=== PATIENT | female | born 1935 | race Caucasian/White ===

== ENCOUNTER 2018-09-19 06:58 | Emergency (ER) | payer OTHER ==
--- OUTSIDE RECORDS SUMMARY | 2018-09-19 07:12 | XMS REPORT ---
:1935 Author Organization eClinicalWorks Care Team Providers Name Role Phone Dusty Alvarado Provider Role Unavailable Allergies, Adverse Reactions, Alerts Substance Reaction Event Type N.K.D.A. 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 Active Problem Primary osteoarthritis of right M17.11 Active knee Assessment Primary osteoarthritis of left knee M17.12 Active Problem Pain in joint of left knee M25.562 Active Assessment Pain in joint of right knee M25.561 Active Assessment Primary osteoarthritis of right M17.11 Active knee Problem Primary osteoarthritis of left knee M17.12 Active Problem Screening for malignant neoplasm of Z12.11 Active colon Problem Prediabetes R73.03 Active Problem Pain in joint of right knee M25.561 Active Problem Edema, unspecified R60.9 Active Problem Venous insufficiency (chronic) I87.2 Active (peripheral) Problem Diastolic congestive heart failure I50.30 Active Assessment Pain in joint of left knee M25.562 Active Problem Unsteady gait R26.81 Active Problem Carpal tunnel syndrome G56.00 Active Problem Pure hypercholesterolemia E78.00 Active Problem Prediabetes R73.09 Active Problem Edema, lower extremity R60.0 Active Problem HTN (hypertension) I10 Active Medications Medication Code Code Instructions Start End Status Dosage System Date Date Metoprolol ND 82272845110 50 MG Orally Active 1 tablet Tartrate Twice a day with food Tramadol HCl ND 89978092576 50 MG Orally Active 1 tablet every 6 hrs as needed Losartan ND 65681478760 100 MG Orally January 30, Active 1 tablet Potassium Once a day 2017 Ferrous ND 59735498717 325 (65 Fe) MG Active 1 tablet Sulfate Orally three times a day Lasix ND 26900289566 20 MG Orally Active 1 tablet Once a day Flonase ND 79683009888 50 MCG/ACT Active 1 spray in Nasally Once a each day nostril Macrobid [facility] 21322246793 100 MG Orally Active 1 capsule every 12 hrs with food Amlodipine [facility] 52847779255 10 MG Orally Active 1 tablet Besylate Once a day Protonix [facility] 67840601728 40 MG Orally Active 1 tablet Once a day Results No Known Results Summary Purpose eClinicalWorks Submission
--- OUTSIDE RECORDS SUMMARY | 2018-09-19 07:12 | XMS REPORT ---
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 Active Problem Primary osteoarthritis of right M17.11 Active knee Problem Pain in joint of left knee M25.562 Active Problem Primary osteoarthritis of left knee M17.12 Active Problem Screening for malignant neoplasm of Z12.11 Active colon Problem Prediabetes R73.03 Active Problem Pain in joint of right knee M25.561 Active Problem Edema, unspecified R60.9 Active Problem Venous insufficiency (chronic) I87.2 Active (peripheral) Problem Diastolic congestive heart failure I50.30 Active Problem Unsteady gait R26.81 Active Problem Carpal tunnel syndrome G56.00 Active Problem Pure hypercholesterolemia E78.00 Active Problem Prediabetes R73.09 Active Problem Edema, lower extremity R60.0 Active Problem HTN (hypertension) I10 Active Medications Medication Code Code Instructions Start End Status Dosage System Date Date Amlodipine [facility] 66051965490 10 Orally Once a Active 1 tablet Besylate day Integra Plus [facility] 50402333004 - Orally Once a Active 1 capsule day Lasix [facility] 24597270738 20 Orally Once a Active 1 tablet day Macrobid [facility] 60948243876 100 MG Orally Active 1 capsule every 12 hrs with food Potassium [facility] 51495550998 20 MEQ Orally Active 1 tablet Chloride ER Once a day with food Protonix [facility] 59685527156 40 MG Orally Active 1 tablet Once a day Protonix ND 55695919720 40 Orally Once a Active 1 tablet day Losartan ND 56888950117 100 Orally Once Active 1 tablet Potassium a day Tramadol HCl ND 59953778435 50 MG Orally Active 1 tablet every 6 hrs as needed Flonase [facility] 69408695272 50 MCG/ACT Active 1 spray in Nasally Once a each day nostril Lasix [facility] 15181320844 20 MG Orally Active 1 tablet Once a day Amlodipine [facility] 92126514820 10 MG Orally Active 1 tablet Besylate Once a day Metoprolol [facility] 93268096707 50 MG Orally Active 1 tablet Tartrate Twice a day with food Lisinopril [facility] 38691528866 20 MG Orally Active 1 tablet Once a day Results No Known Results Summary Purpose eClinicalWorks Submission
--- OUTSIDE RECORDS SUMMARY | 2018-09-19 07:12 | XMS REPORT ---
:1935 Author Organization eClinicalWorks Care Team Providers Name Role Phone Koch, Na Provider Role Unavailable Allergies, Adverse Reactions, Alerts Substance Reaction Event Type N.K.D.A. 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 Active Problem Primary osteoarthritis of right M17.11 Active knee Problem Pain in joint of left knee M25.562 Active Assessment Pure hypercholesterolemia E78.00 Active Assessment 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 dietary causes Problem Primary osteoarthritis of left knee M17.12 Active Assessment Diastolic congestive heart failure I50.30 Active Problem Screening for malignant neoplasm of Z12.11 Active colon Problem Prediabetes R73.03 Active Problem Pain in joint of right knee M25.561 Active Problem Edema, unspecified R60.9 Active Problem Venous insufficiency (chronic) I87.2 Active (peripheral) Problem Diastolic congestive heart failure I50.30 Active Assessment HTN (hypertension) I10 Active Problem Unsteady gait R26.81 Active Problem Carpal tunnel syndrome G56.00 Active Problem Pure hypercholesterolemia E78.00 Active Problem Edema, lower extremity R60.0 Active Medications Medication Code Code Instructions Start End Status Dosage System Date Date Lisinopril ND 44454682456 20 MG Orally Active 1 tablet Once a day Losartan ND 45851845619 100 MG Orally Inactive 1 tablet Potassium Once a day Macrobid ND 77105485231 100 MG Orally Active 1 capsule every 12 hrs with food Flonase ND 68891119856 50 MCG/ACT Active 1 spray in Nasally Once a each day nostril Ferrous ND 78612874492 325 (65 Fe) MG Inactive 1 tablet Sulfate Orally three times a day Metoprolol [facility] 77975874323 50 MG Orally Active 1 tablet Tartrate Twice a day with food Lasix [facility] 31684822071 20 Orally Once Active 1 tablet a day Losartan [facility] 60964496183 100 Orally Once Active 1 tablet Potassium a day Lasix [facility] 88950708096 20 MG Orally Active 1 tablet Once a day Tramadol HCl [facility] 84170839844 50 MG Orally Active 1 tablet every 6 hrs as needed Potassium [facility] 47300605835 20 MEQ Orally Active 1 tablet Chloride ER Once a day with food Amlodipine [facility] 99432817779 10 Orally Once Active 1 tablet Besylate a day Protonix [facility] 02395091976 40 Orally Once Active 1 tablet a day Amlodipine [facility] 70865238131 10 MG Orally Active 1 tablet Besylate Once a day Protonix [facility] 13342577542 40 MG Orally Active 1 tablet Once a day Results No Known Results Summary Purpose eClinicalWorks Submission
--- OUTSIDE RECORDS SUMMARY | 2018-09-19 07:12 | XMS REPORT ---
:1935 Author Organization eClinicalWorks Care Team Providers Name Role Phone Koch, Na Provider Role Unavailable Allergies, Adverse Reactions, Alerts Substance Reaction Event Type N.K.D.A. Info Not Available Non Drug Allergy Problems Problem Type Condition Code Onset Dates Condition Status Assessment Influenza vaccination administered Z23 Active at current visit Assessment Hypokalemia E87.6 Active Assessment Screening for malignant neoplasm of Z12.11 Active colon Assessment Prediabetes R73.03 Active Problem Prediabetes R73.09 [...] Start End Status Dosage System Date Date Flonase [facility] 50967445555 50 MCG/ACT Active 1 spray in Nasally Once a each day nostril Tramadol HCl [facility] 12034144947 50 MG Orally Active 1 tablet every 6 hrs as needed Metoprolol [facility] 51696752018 50 MG Orally Active 1 tablet Tartrate Twice a day with food Protonix [facility] 27000329402 40 MG Orally Active 1 tablet Once a day Losartan ND 43312408853 100 MG Orally Inactive 1 tablet Potassium Once a day Losartan ND 00556271005 100 Orally Once Active 1 tablet Potassium a day Lisinopril ND 84908494601 20 MG Orally May 17, Active 1 tablet Once a day 2017 Lasix ND 63453658406 20 MG Orally Active 1 tablet Once a day Macrobid [facility] 64884655072 100 MG Orally Active 1 capsule every 12 hrs with food Amlodipine [facility] 87653672530 10 MG Orally Active 1 tablet Besylate Once a day Ferrous [facility] 88659186362 325 (65 Fe) MG Active 1 tablet Sulfate Orally three times a day Potassium [facility] 53010537534 20 MEQ Orally May 21, Active 1 tablet Chloride ER Once a day 2017 with food Results No Known Results Immunizations Vaccine Administration Date FluAD May 21, 2018 Summary Purpose eClinicalWorks Submission
[2018-09-19 08:00] LABS: Protime INR 1.11
[2018-09-19 08:01] LABS: Absolute Lymphocytes (CBC) 0.7 K/uL (0.7-4.9); Absolute Monocytes 0.8 K/uL (0.1-1.3); Absolute Neutrophil 9.6 K/uL (1.8-8.0); Basophils % 0.4 % (0-1.3); Eosinophils % 0.3 % (0-4.4); Hematocrit 35.8 % (36.0-45.0); Lymphocytes % 6.4 % (15.3-44.8); MPV 7.5 fL (7.6-11.3); Monocytes % 7.3 % (3.3-12.3); RBC Red Blood Cell Count 4.31 M/uL (3.86-4.86)
[2018-09-19 08:09] LABS: ALT/SGPT 17 U/L (12-78); AST/SGOT 15 U/L (15-37); Alkaline Phosphatase 119 U/L (45-117); BUN Blood Urea Nitrogen 11 mg/dL (7-18); Bicarbonate 23 mmol/L (21-32); Bilirubin Direct 0.1 mg/dL (0-0.2); Bilirubin Total 0.3 mg/dL (0.2-1.0); Glucose Level 133 mg/dL (74-106); Magnesium 2.1 mg/dL (1.8-2.4); NT PRO-BNP 887 pg/mL (<450); Potassium 3.4 mmol/L (3.5-5.1); Protein, Total 6.2 g/dL (6.4-8.2); Sodium Level 142 mmol/L (136-145); Troponin (Emerg Dept Use Only) < 0.02 ng/mL (0.0-0.045)
--- NOTE | 2018-09-19 08:46 | RAD REPORT ---
EXAM DESCRIPTION: Ekta Single View09/19/2018 8:14 am CLINICAL HISTORY: Shortness of breath COMPARISON: 2011 FINDINGS: The lungs appear clear of acute infiltrate. The heart is moderately enlarged IMPRESSION: No acute abnormalities displayed
--- NOTE | 2018-09-19 10:13 | ER ---
Nurse's Notes [facility] Name: Meredith Maria Age: 83 yrs Sex: Female : 1935 Arrival Date: 09/19/2018 Time: 06:59 Bed 7 Private MD: Diagnosis: Bronchitis, not specified as acute or chronic Presentation: 09/19 07:03 Presenting complaint: Patient states: SOB, COUGH x 1 WEEK. Transition of care: patient bp was not received from another setting of care. Onset of symptoms is unknown. Risk Assessment: Do you want to hurt yourself or someone else? Patient reports no desire to harm self or others. Initial Sepsis Screen: Does the patient meet any 2 criteria? No. Patient's initial sepsis screen is negative. Does the patient have a suspected source of infection? No. Patient's initial sepsis screen is negative. Care prior to arrival: None. 07:03 Method Of Arrival: Ambulatory bp 07:03 Acuity: CYRUS 3 bp Triage Assessment: 07:06 General: Appears in no apparent distress. comfortable, Behavior is cooperative, bp appropriate for age, anxious. Pain: Denies pain. EENT: No deficits noted. Neuro: Level of Consciousness is awake, alert, obeys commands, Oriented to person, place, time, situation, Appropriate for age. Cardiovascular: Rhythm is regular. Respiratory: Reports shortness of breath cough that is productive, Onset: The symptoms/episode began/occurred 1 WEEK, the patient has mild shortness of breath. GI: No signs and/or symptoms were reported involving the gastrointestinal system. : No signs and/or symptoms were reported regarding the genitourinary system. Derm: No deficits noted. Musculoskeletal: Circulation, motion, and sensation intact. Range of motion: intact in all extremities. Historical: - Allergies: 07:06 No Known Allergies; bp - Home Meds: 07:06 Metoprolol Tartrate Oral [Active]; bp 07:06 amlodipine oral [Active]; Lasix Oral [Active]; Lisinopril Oral [Active]; aa5 - PMHx: 07:06 Hypertension; Osteoporosis; bp 07:06 CHF; Anemia; Pre Diabetes; aa5 - PSHx: 07:06 jcarlos hip replacement; Tonsillectomy; Appendectomy; aa5 - Immunization history:: Adult Immunizations up to date. - Social history:: Smoking status: Patient/guardian denies using tobacco. - Ebola Screening: : Patient negative for fever greater than or equal to 101.5 degrees Fahrenheit, and additional compatible Ebola Virus Disease symptoms Patient denies exposure to infectious person Patient denies travel to an Ebola-affected area in the 21 days before illness onset No symptoms or risks identified at this time. Screenin:11 Abuse screen: Denies threats or abuse. Denies injuries from another. Nutritional bp screening: No deficits noted. Tuberculosis screening: No symptoms or risk factors identified. Fall Risk No fall in past 12 months (0 pts). No secondary diagnosis (0 pts). No IV (0 pts). Ambulatory Aid- Crutches/Cane/Walker (15 pts). Gait- Normal/Bed Rest/Wheelchair (0 pts) Mental Status- Oriented to own ability (0 pts). Total Stevens Fall Scale indicates No Risk (0-24 pts). Assessment: 07:09 General: SEE TRIAGE NOTE. bp 07:10 General: Appears comfortable, Behavior is calm, cooperative. Pain: Denies pain. Neuro: aa5 Level of Consciousness is awake, alert, obeys commands, Oriented to person, place, time, situation. Cardiovascular: Heart tones S1 S2 present Edema 2+ pitting edema noted to jcarlos lower extremities, pt reports this is her baseline. Rhythm is sinus rhythm. Respiratory: Reports shortness of breath cough that is non-productive, Airway is patent Respiratory effort is even, unlabored, Respiratory pattern is regular, symmetrical, Breath sounds are coarse bilaterally. GI: Abdomen is round non-distended, Bowel sounds present X 4 quads. Abd is soft and non tender X 4 quads. Reports nausea, Patient currently denies vomiting. : No signs and/or symptoms were reported regarding the genitourinary system. EENT: Pt is hard of hearing. . Derm: Skin is pink, warm \T\ dry. Musculoskeletal: Range of motion: intact in all extremities, Pt is ambulatory with walker. 08:30 Reassessment: Patient and/or family updated on plan of care and expected duration. Pain aa5 level reassessed. Patient is alert, oriented x 3, equal unlabored respirations, skin warm/dry/pink. Patient denies pain at this time. 09:30 Reassessment: Patient and/or family updated on plan of care and expected duration. Pain aa5 level reassessed. Patient is alert, oriented x 3, equal unlabored respirations, skin warm/dry/pink. Patient denies pain at this time. 10:49 Reassessment: Patient is alert, oriented x 3, equal unlabored respirations, skin aa5 warm/dry/pink. Patient denies pain at this time. Vital Signs: 07:08 BP 161 / 79; Pulse 78; Resp 18; Pulse Ox 97% ; Weight 72.57 kg; Height 5 ft. 3 in. bp (160.02 cm); 07:08 Temp 97.9(O); aa5 07:30 BP 142 / 69; Pulse 70; Resp 18 S; Pulse Ox 96% on R/A; Pain 0/10; aa5 08:30 BP 134 / 70; Pulse 70; Resp 16 S; Pulse Ox 95% on R/A; Pain 0/10; aa5 09:30 BP 136 / 73; Pulse 74; Resp 16 S; Pulse Ox 95% on R/A; aa5 10:49 BP 132 / 68; Pulse 72; Resp 16 S; Temp 98.0(TE); Pulse Ox 96% on R/A; Pain 0/10; aa5 07:08 Body Mass Index 28.34 (72.57 kg, 160.02 cm) bp ED Course: 06:59 Patient arrived in ED. ds1 07:00 Abhinav Wilkinson NP is PHCP. pm1 07:00 Ugo Valderrama MD is Attending Physician. pm1 07:02 Gregoria Ha, RN is Primary Nurse. aa5 07:05 Triage completed. bp 07:08 Arm band placed on. bp 07:11 Patient has correct armband on for positive identification. Bed in low position. Call bp light in reach. Side rails up X2. Adult w/ patient. 07:20 First set of blood cultures drawn by me. aa5 07:20 Initial lab(s) drawn, by me, sent to lab. Inserted saline lock: 20 gauge in right aa5 antecubital area, using aseptic technique. Blood collected. 07:22 Flu and/or RSV swab sent to lab. aa5 07:35 Second set of blood cultures drawn by me. aa5 07:39 EKG done, by technical information specialist. reviewed by Abhinav Wilkinson NP. at1 08:08 X-ray completed. Portable x-ray completed in exam room. Patient tolerated procedure jb2 well. 08:11 XRAY Chest (1 view) In Process Unspecified. EDMS 10:49 IV discontinued, intact, bleeding controlled, No redness/swelling at site. Pressure aa5 dressing applied. 10:49 No provider procedures requiring assistance completed. aa5 Administered Medications: 10:30 Drug: Rocephin 1 grams Route: IV; Rate: calculated rate; Site: right antecubital; aa5 10:35 Follow up: Response: No adverse reaction aa5 10:49 Follow up: Response: No adverse reaction aa5 10:30 Drug: Albuterol 2.5 mg Route: Inhalation; aa5 10:49 Follow up: Response: No adverse reaction aa5 Outcome: 10:12 Discharge ordered by MD. pm1 10:49 Discharged to home ambulatory, with walker aa5 10:49 Condition: stable 10:49 Discharge instructions given to patient, family, Instructed on discharge instructions, follow up and referral plans. medication usage, Demonstrated understanding of instructions, follow-up care, medications, Prescriptions given X 2. 10:50 Patient left the ED. aa5 Signatures: Dispatcher [employer] EDMS Maddi Rosalio jbUma SarahDoeJeimy ds1 Gregoria Ha, RN RN aa5 Sadia Gordon, charging operator EKG Tat1 Abhinav Wilkinson NP [employer] COMP[employer]ER pm1 Jaron Werner, RN RN bp Corrections: (The following items were deleted from the chart) 07:47 07:03 Presenting complaint: Patient states: SOB, COUGH, [place]TE[place] FOR ONE WEEK bp aa5 07:49 07:06 Home Meds: Diovan Oral; bp aa5
--- NOTE | 2018-09-19 10:13 | EDPHYS ---
Physician Documentation [facility] Name: Meredith Maria Age: 83 yrs Sex: Female : 1935 Arrival Date: 09/19/2018 Time: 06:59 Bed 7 Private MD: ED Physician Ugo Valderrama HPI: 09/19 07:30 This 83 yrs old Female presents to ER via Ambulatory with complaints of Cough pm1 and congestion. 07:30 The patient or guardian reports cough, with productive sputum, that is yellow, from pm1 post nasal drainage. Onset: The symptoms/episode began/occurred 1 week(s) ago. Severity of symptoms: in the emergency department the symptoms are unchanged. Modifying factors: The symptoms are alleviated by nothing, the symptoms are aggravated by nothing. Associated signs and symptoms: Pertinent positives: rhinorrhea, sinus congestion, Pertinent negatives: chest pain, fever, nausea, sore throat, vomiting. The patient has not experienced similar symptoms in the past. The patient has not recently seen a physician, the patient's primary care provider is Dr. Koch. Historical: - Allergies: 07:06 No Known Allergies; bp - Home Meds: 07:06 Metoprolol Tartrate Oral [Active]; bp 07:06 amlodipine oral [Active]; Lasix Oral [Active]; Lisinopril Oral [Active]; aa5 - PMHx: 07:06 Hypertension; Osteoporosis; bp 07:06 CHF; Anemia; Pre Diabetes; aa5 - PSHx: 07:06 jcarlos hip replacement; Tonsillectomy; Appendectomy; aa5 - Immunization history:: Adult Immunizations up to date. - Social history:: Smoking status: Patient/guardian denies using tobacco. - Ebola Screening: : Patient negative for fever greater than or equal to 101.5 degrees Fahrenheit, and additional compatible Ebola Virus Disease symptoms Patient denies exposure to infectious person Patient denies travel to an Ebola-affected area in the 21 days before illness onset No symptoms or risks identified at this time. ROS: 07:30 Constitutional: Negative for fever, chills, and weight loss, Eyes: Negative for injury, pm1 pain, redness, and discharge. 07:30 Neck: Negative for injury, pain, and swelling, Cardiovascular: Negative for chest pain, palpitations, and edema. 07:30 Abdomen/GI: Negative for abdominal pain, nausea, vomiting, diarrhea, and constipation, Back: Negative for injury and pain, : Negative for injury, bleeding, discharge, and swelling, MS/Extremity: Negative for injury and deformity, Skin: Negative for injury, rash, and discoloration, Neuro: Negative for headache, weakness, numbness, tingling, and seizure. 07:30 ENT: Positive for sinus congestion, Negative for drainage from ear(s), ear pain. 07:30 Respiratory: Positive for cough, shortness of breath, Negative for wheezing. Exam: 07:30 Constitutional: This is a well developed, well nourished patient who is awake, alert, pm1 and in no acute distress. Head/Face: Normocephalic, atraumatic. Eyes: Pupils equal round and reactive to light, extra-ocular motions intact. Lids and lashes normal. Conjunctiva and sclera are non-icteric and not injected. Cornea within normal limits. Periorbital areas with no swelling, redness, or edema. ENT: Nares patent. No nasal discharge, no septal abnormalities noted. Tympanic membranes are normal and external auditory canals are clear. Oropharynx with no redness, swelling, or masses, exudates, or evidence of obstruction, uvula midline. Mucous membranes moist. Neck: Trachea midline, no thyromegaly or masses palpated, and no cervical lymphadenopathy. Supple, full range of motion without nuchal rigidity, or vertebral point tenderness. No Meningismus. Chest/axilla: Normal chest wall appearance and motion. Nontender with no deformity. No lesions are appreciated. Cardiovascular: Regular rate and rhythm with a normal S1 and S2. No gallops, murmurs, or rubs. No pulse deficits. Respiratory: Lungs have equal breath sounds bilaterally, clear to auscultation and percussion. No rales, rhonchi or wheezes noted. No increased work of breathing, no retractions or nasal flaring. Abdomen/GI: Soft, non-tender, with normal bowel sounds. No distension or tympany. No guarding or rebound. No evidence of tenderness throughout. Back: No spinal tenderness. No costovertebral tenderness. Full range of motion. Skin: Warm, dry with normal turgor. Normal color with no rashes, no lesions, and no evidence of cellulitis. MS/ Extremity: Pulses equal, no cyanosis. Neurovascular intact. Full, normal range of motion. 07:30 Neuro: Orientation: is normal, Motor: is normal, moves all fours. Vital Signs: 07:08 BP 161 / 79; Pulse 78; Resp 18; Pulse Ox 97% ; Weight 72.57 kg; Height 5 ft. 3 in. bp (160.02 cm); 07:08 Temp 97.9(O); aa5 07:30 BP 142 / 69; Pulse 70; Resp 18 S; Pulse Ox 96% on R/A; Pain 0/10; aa5 08:30 BP 134 / 70; Pulse 70; Resp 16 S; Pulse Ox 95% on R/A; Pain 0/10; aa5 09:30 BP 136 / 73; Pulse 74; Resp 16 S; Pulse Ox 95% on R/A; aa5 10:49 BP 132 / 68; Pulse 72; Resp 16 S; Temp 98.0(TE); Pulse Ox 96% on R/A; Pain 0/10; aa5 07:08 Body Mass Index 28.34 (72.57 kg, 160.02 cm) bp MDM: 07:00 Patient medically screened. pm1 10:12 Data reviewed: vital signs. Data interpreted: Pulse oximetry: on room air is 96 %. pm1 Interpretation: normal. Counseling: I had a detailed discussion with the patient and/or guardian regarding: the historical points, exam findings, and any diagnostic results supporting the discharge/admit diagnosis, lab results, radiology results, the need for outpatient follow up, to return to the emergency department if symptoms worsen or persist or if there are any questions or concerns that arise at home. 09/19 07:01 Order name: Flu; Complete Time: 08:47 pm1 09/19 07:01 Order name: Basic Metabolic Panel; Complete Time: 08:21 pm1 09/19 07:01 Order name: CBC with Diff pm1 09/19 07:01 Order name: LFT's; Complete Time: 08:21 pm1 09/19 07:01 Order name: Magnesium; Complete Time: 08:21 pm1 09/19 07:01 Order name: NT PRO-BNP; Complete Time: 08:21 pm1 09/19 07:01 Order name: PT-INR; Complete Time: 08:26 pm1 09/19 07:01 Order name: Troponin (emerg Dept Use Only); Complete Time: 08:21 pm1 09/19 07:01 Order name: XRAY Chest (1 view); Complete Time: 08:47 pm1 09/19 07:01 Order name: Procalcitonin; Complete Time: 09:12 pm1 09/19 07:01 Order name: Blood Culture Adult (2) pm1 09/19 08:05 Order name: CBC Smear Scan EDMS 09/19 07:01 Order name: EKG; Complete Time: 07:02 pm1 09/19 07:01 Order name: Cardiac monitoring; Complete Time: 07:02 pm1 09/19 07:01 Order name: EKG - Nurse/Tech; Complete Time: 07:35 pm1 09/19 07:01 Order name: IV Saline Lock; Complete Time: 07:35 pm1 09/19 07:01 Order name: Labs collected and sent; Complete Time: 07:35 pm1 09/19 07:01 Order name: O2 Per Protocol; Complete Time: 07:02 pm1 09/19 07:01 Order name: O2 Sat Monitoring; Complete Time: 07:02 pm1 Administered Medications: 10:30 Drug: Rocephin 1 grams Route: IV; Rate: calculated rate; Site: right antecubital; aa5 10:35 Follow up: Response: No adverse reaction aa5 10:49 Follow up: Response: No adverse reaction aa5 10:30 Drug: Albuterol 2.5 mg Route: Inhalation; aa5 10:49 Follow up: Response: No adverse reaction aa5 Disposition: 09/19/18 10:12 Discharged to Home. Impression: Bronchitis, not specified as acute or chronic. - Condition is Stable. - Discharge Instructions: Sinusitis, Adult, Cough, Adult. - Prescriptions for Zithromax Z- Jim 250 mg Oral Tablet - take 1 tablet by ORAL route as directed for 5 days Day 1 - take two (2) tablets one time. Day 2, 3, 4 , 5 take one (1) tablet once daily.; 6 tablet. Tessalon Perles 100 mg Oral Capsule - take 1 capsule by ORAL route every 8 hours As needed; 15 capsule. - Medication Reconciliation Form, Thank You Letter, Antibiotic Education form. - Follow up: Emergency Department; When: As needed; Reason: Worsening of condition. Follow up: Private Physician; When: 2 - 3 days; Reason: Recheck today's complaints, Continuance of care, Re-evaluation by your physician. - Problem is new. - Symptoms have improved. Addendum: 09/22/2018 07:06 Co-signature as Attending Physician, Ugo Valderrama MD I agree with the assessment and t w4 plan of care. Signatures: Dispatcher [employer] EDMS Gregoria Ha RN RN aa5 Abhinav Wilkinson, HEALTH PROFESSOR HEALTH PROFESSOR pm1 Jaron Werner RN RN Ugo Ortiz MD MD tw4 Corrections: (The following items were deleted from the chart) 09/19 07:49 07:06 Home Meds: Diovan Oral; aa5 10:50 10:12 09/19/2018 10:12 Discharged to Home. Impression: Bronchitis, not specified as aa5 acute or chronic. Condition is Stable. Forms are Medication Reconciliation Form, Thank You Letter, Antibiotic Education, Prescription Opioid Use. Follow up: Emergency Department; When: As needed; Reason: Worsening of condition. Follow up: Private Physician; When: 2 - 3 days; Reason: Recheck today's complaints, Continuance of care, Re-evaluation by your physician. Problem is new. Symptoms have improved. pm1
[2018-09-19] MEDS ORDERED: ALBUTEROL 2.5 MG/3 ML NEB SOL ONE (10:39)
[2018-09-19] MEDS ORDERED: CEFTRIAXONE/SWI 1gm 1 GM/10 ML SYR ONE (10:39)
[2018-09-19 10:50] LABS: Blood Morphology Comment NOT SEEN (NOT SEEN); Platelet Estimate ADEQ; Urine White Blood Cell Casts OK
[2018-09-19 10:54] VITALS: TEMP 97.9
[2018-09-19 10:56] VITALS: BP 142/69; O2SAT 96
== END 2018-09-19 10:50 | disposition home or self-care (01) ==
LOC: ER 06:58
DX: J40 Bronchitis, not specified as acute or chronic (principal); I10 Essential (primary) hypertension; I50.9 Heart failure, unspecified; R73.03 Prediabetes
CPT/HCPCS: 93005; 87040 ×2; 85025; 80048; 36415; 83735; 85610; 80076; 84484; 84145; 83880; 87804 ×2; 71045; 96374; 99285; J0696

== ENCOUNTER → 2018-11-21 | Day surgery (SDC) | payer OTHER ==
[~2018-11-21] MED LIST: GLYCOPYRROLATE 0.2 MG/ML SYR ONE; LIDOCAINE 1% MPF 5 ML VIAL ONE; NS 0.9% VIAL 10 ML ONE; PROPOFOL 200 MG/20 ML VIAL IV ONE; Phenylephrine HCl 10 MG/ML 1 ML VIAL ONE; Ringers Lactate 1,000 ML IV ONE
--- OUTSIDE RECORDS SUMMARY | 2018-11-21 06:56 | XMS REPORT ---
[...] End Status Dosage System Date Date Flonase [facility] 42518970888 50 MCG/ACT Active 1 spray in Nasally Once a each day nostril Tramadol HCl [facility] 69499471372 50 MG Orally Active 1 tablet every 6 hrs as needed Metoprolol [facility] 61689897213 50 MG Orally Active 1 tablet Tartrate Twice a day with food Protonix [facility] 49169480520 40 MG Orally Active 1 tablet Once a day Losartan ND 84035587871 100 MG Orally Inactive 1 tablet Potassium Once a day Losartan ND 94628375505 100 Orally Once Active 1 tablet Potassium a day Lisinopril ND 54118783131 20 MG Orally May 17, Active 1 tablet Once a day 2017 Lasix ND 52090810596 20 MG Orally Active 1 tablet Once a day Macrobid [facility] 82970176952 100 MG Orally Active 1 capsule every 12 hrs with food Amlodipine [facility] 48502528916 10 MG Orally Active 1 tablet Besylate Once a day Ferrous [facility] 08757153491 325 (65 Fe) MG Active 1 tablet Sulfate Orally three times a day Potassium [facility] 87732314865 20 MEQ Orally May 21, Active 1 tablet Chloride ER Once a day 2017 with food Results No Known Results Immunizations Vaccine Administration Date FluAD May 21, 2018 Summary Purpose eClinicalWorks Submission
--- OUTSIDE RECORDS SUMMARY | 2018-11-21 06:56 | XMS REPORT ---
[...] Status Dosage System Date Date Metoprolol ND 26619721919 50 MG Orally Active 1 tablet Tartrate Twice a day with food Tramadol HCl ND 66944447080 50 MG Orally Active 1 tablet every 6 hrs as needed Losartan ND 51742394563 100 MG Orally January 30, Active 1 tablet Potassium Once a day 2017 Ferrous ND 96008408465 325 (65 Fe) MG Active 1 tablet Sulfate Orally three times a day Lasix ND 97804802014 20 MG Orally Active 1 tablet Once a day Flonase ND 14834191395 50 MCG/ACT Active 1 spray in Nasally Once a each day nostril Macrobid [facility] 62350736578 100 MG Orally Active 1 capsule every 12 hrs with food Amlodipine [facility] 31822762838 10 MG Orally Active 1 tablet Besylate Once a day Protonix [facility] 15071144411 40 MG Orally Active 1 tablet Once a day Results No Known Results Summary Purpose eClinicalWorks Submission
--- OUTSIDE RECORDS SUMMARY | 2018-11-21 06:56 | XMS REPORT ---
[...] Amlodipine [facility] 01258862965 10 Orally Once a Active 1 tablet Besylate day Integra Plus [facility] 38253433619 - Orally Once a Active 1 capsule day Lasix [facility] 29649877870 20 Orally Once a Active 1 tablet day Macrobid [facility] 21055069189 100 MG Orally Active 1 capsule every 12 hrs with food Potassium [facility] 68308038589 20 MEQ Orally Active 1 tablet Chloride ER Once a day with food Protonix [facility] 87170871784 40 MG Orally Active 1 tablet Once a day Protonix ND 47809781309 40 Orally Once a Active 1 tablet day Losartan ND 25809961441 100 Orally Once Active 1 tablet Potassium a day Tramadol HCl ND 49262439003 50 MG Orally Active 1 tablet every 6 hrs as needed Flonase [facility] 02155039082 50 MCG/ACT Active 1 spray in Nasally Once a each day nostril Lasix [facility] 33478666069 20 MG Orally Active 1 tablet Once a day Amlodipine [facility] 41433354838 10 MG Orally Active 1 tablet Besylate Once a day Metoprolol [facility] 02608578783 50 MG Orally Active 1 tablet Tartrate Twice a day with food Lisinopril [facility] 63369867705 20 MG Orally Active 1 tablet Once a day Results No Known Results Summary Purpose eClinicalWorks Submission
--- OUTSIDE RECORDS SUMMARY | 2018-11-21 06:57 | XMS REPORT ---
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30 Active Problem Prediabetes R73.09 Active Problem Pure hypercholesterolemia E78.00 Active Problem HTN (hypertension) I10 Active Problem Gastroesophageal reflux disease K21.9 Active without esophagitis Medications No Known Medications Results No Known Results Summary Purpose eClinicalWorks Submission
--- OUTSIDE RECORDS SUMMARY | 2018-11-21 06:57 | XMS REPORT ---
[...] osteoarthritis of left knee M17.12 Active Assessment HTN (hypertension) I10 Active Problem Primary osteoarthritis of right M17.11 [...] reflux disease K21.9 Active without esophagitis Medications Medication Code System Code Instructions Start Date End Date Status Dosage Lisinopril [facility] 52730802798 20 MG Orally Once Active 1 tablet a day Results No Known Results Summary Purpose eClinicalWorks Submission
--- OUTSIDE RECORDS SUMMARY | 2018-11-21 06:57 | XMS REPORT ---
[...] Status Dosage System Date Date Lisinopril ND 30847902951 20 MG Orally Active 1 tablet Once a day Losartan ND 07938599113 100 MG Orally Inactive 1 tablet Potassium Once a day Macrobid ND 78668335707 100 MG Orally Active 1 capsule every 12 hrs with food Flonase ND 83910476724 50 MCG/ACT Active 1 spray in Nasally Once a each day nostril Ferrous ND 11549021942 325 (65 Fe) MG Inactive 1 tablet Sulfate Orally three times a day Metoprolol [facility] 85038475113 50 MG Orally Active 1 tablet Tartrate Twice a day with food Lasix [facility] 28414156596 20 Orally Once Active 1 tablet a day Losartan [facility] 79290274196 100 Orally Once Active 1 tablet Potassium a day Lasix [facility] 81223825957 20 MG Orally Active 1 tablet Once a day Tramadol HCl [facility] 62049328848 50 MG Orally Active 1 tablet every 6 hrs as needed Potassium [facility] 18436480319 20 MEQ Orally Active 1 tablet Chloride ER Once a day with food Amlodipine [facility] 29374916161 10 Orally Once Active 1 tablet Besylate a day Protonix [facility] 91252463810 40 Orally Once Active 1 tablet a day Amlodipine [facility] 67460989267 10 MG Orally Active 1 tablet Besylate Once a day Protonix [facility] 63472303558 40 MG Orally Active 1 tablet Once a day Results No Known Results Summary Purpose eClinicalWorks Submission
--- OUTSIDE RECORDS SUMMARY | 2018-11-21 06:57 | XMS REPORT ---
:1935 Author Organization eClinicalWorks Care Team Providers Name Role Phone Koch, Angelina Provider Role Unavailable Allergies, Adverse Reactions, Alerts Substance Reaction Event Type N.K.D.A. 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 Active knee Assessment Wheezing on inspiration R06.2 Active Assessment Seasonal allergies J30.2 Active Problem Seasonal allergies J30.2 Active Problem Edema, [...] R73.09 Active Problem Pure hypercholesterolemia E78.00 Active Assessment Nausea R11.0 Active Problem HTN (hypertension) I10 Active Problem Gastroesophageal reflux disease K21.9 Active without esophagitis Medications Medication Code Code Instructions Start End Status Dosage System Date Date Potassium Chloride ND 63572164198 20 MEQ Orally Active 1 tablet ER Once a day with food Amlodipine ND 88404063735 10 MG Orally Active 1 tablet Besylate Once a day Azithromycin ND 08181260851 500 MG Orally Active 2 tablets once a day on the first day, then 1 tablet daily for 4 days Integra Plus ND 54041629451 - Orally Once a Active 1 capsule day Flonase ND 57004104814 50 MCG/ACT Active 1 spray in Nasally Once a each day nostril Levocetirizine ND 07255131077 5 MG Orally August Active 1 tablet Dihydrochloride Once a day 2018 20, in the 2018 evening Zofran [facility] 16489316160 4 MG Orally August Active as Twice a day as 2018 directed needed for nausea Metoprolol [facility] 08501639161 50 MG Orally Active 1 tablet Tartrate Twice a day with food Protonix [facility] 71661636689 40 MG Orally Active 1 tablet Once a day Albuterol Sulfate [facility] 76124194103 108 (90 Base) Active 2 puffs as MCG/ACT needed Inhalation every 6 hrs Losartan Potassium [facility] 56041043394 100 Orally Once Active 1 tablet a day Flonase [facility] 34840832678 50 MCG/ACT August Active 1 spray in Nasally Once a 2018 each day nostril Lasix [facility] 81269836739 20 MG Orally Active 1 tablet Once a day Tramadol HCl [facility] 94777745433 50 MG Orally Active 1 tablet every 6 hrs as needed Lisinopril [facility] 19112936752 20 MG Orally Active 1 tablet Once a day Results No Known Results Summary Purpose eClinicalWorks Submission
--- OUTSIDE RECORDS SUMMARY | 2018-11-21 06:57 | XMS REPORT ---
[...] Medications Medication Code Code Instructions Start End Date Status Dosage System Date Zofran [facility] 78645789980 4 MG Orally September 20, Active as directed Twice a day as 2019 needed for nausea Results No Known Results Summary Purpose eClinicalWorks Submission
[2018-11-21 09:47] VITALS: BP 108/51; TEMP 98.2; O2SAT 99
--- NOTE | 2018-11-21 12:02 | RAD REPORT ---
EXAM DESCRIPTION: CT - Abdomen Pelvis W Contrast - 11/21/2018 11:41 am CLINICAL HISTORY: Colon mass COMPARISON: None. TECHNIQUE: Biphasic, helical CT imaging of the abdomen and pelvis was performed following 100 ml non -ionic IV contrast. Oral contrast was given. All CT scans are performed using dose optimization technique as appropriate and may include automated exposure control or mA/KV adjustment according to patient size. FINDINGS: No suspicious findings in the lung bases. Scattered fibrotic lung changes are present. Min imal pericardial thickening or effusion. Mild cardiomegaly seen. Liver size is normal. In the central aspect segment VIII there is a 9 millimeter round low-density ma ss. This does not change between arterial and venous phase imaging. Attenuation is difficult to obtai n due to the small size. Attenuation values approximately 25-30 Hounsfield units. Attenuation is grea ter than typical for cysts though cyst remains the favored diagnosis even in the setting of the mass. No other suspicious liver finding. Spleen and pancreas show no suspicious findings. 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 Gallbladder and biliary tree are also without suspicious finding. Renal function is symmetric. No hydronephrosis or obstructing calculus. 4- 12 mm sized calculi presen t in the mid and lower left kidney. Left kidney is smaller than the right with cortical thinning. Foc al calcification and probable luminal narrowing present at the origin of the left renal artery. Bilat eral renal cysts are present. No pyelonephritis or solid mass lesion of either kidney. No urinary gala dder abnormality seen. Pelvic floor and inferior aspect of the bladder are limited in assessment due to spray artifact from bilateral hip implants. Multiple calcified uterine fibroids are present. No ov yessi or adnexal abnormality. Small a moderate size hiatal hernia is present. Distal esophagus is dilated. Mass lesion is not seen. No gastric wall thickening or mass. Small bowel mass. No acute small bowel finding. Left-sided diverticulosis is present. No diverticulitis. A large 5.5 centimeter diameter mass is pres ent filling much of the cecum. There is circumferential wall thickening of the terminal ileum and a p artial intussusception at the ileocecal valve. Several small 10 mm or less lymph nodes are seen adjac ent to the terminal ileum and tip of the cecum. Nodularity the mucosa extends superiorly into the pro ximal aspect of the ascending colon. Small bowel immediately adjacent to the terminal ileum is distended. There is likely some restriction of flow through the terminal ileum and cecum. However, the bowel is not obstructed. Oral CT contrast has reached the left side of the colon. No bulky lymphadenopathy. No ascites, free air, free fluid or extravasation of contrast. Prominent disc and bony degenerative changes are present. No pathologic bone process identified. 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 Thickened nodular mucosa extends into the proximal most aspect of the ascending col on. Several small 10 mm or less lymph nodes are present in the fatty tissues adjacent to the cecum and te rminal ileum. No bulky lymphadenopathy. No carcinomatosis findings. No free fluid or free air. A small 9 mm rounded low-density mass in the upper right lobe of the liver is favored to be a cyst ra ther than a metastatic lesion. No suspicious liver lesions identified. Hiatal hernia is present with dilated or patulous distal thoracic esophagus. No mass at the GE juncti on identified.
== END ==
LOC: OR 06:54
PROVIDERS: ATTEND Internal Medicine Gastroenterology
PROC: 0DB88ZX Excision of Small Intestine, Via Natural or Artificial Opening Endoscopic, Diagnostic (ICD-10-PCS; 2018-11-21)
PROC: 0DB78ZX Excision of Stomach, Pylorus, Via Natural or Artificial Opening Endoscopic, Diagnostic (ICD-10-PCS; 2018-11-21)
PROC: 0DBK8ZX Excision of Ascending Colon, Via Natural or Artificial Opening Endoscopic, Diagnostic (ICD-10-PCS; principal; 2018-11-21 08:15)
PROC: 0DB68ZX Excision of Stomach, Via Natural or Artificial Opening Endoscopic, Diagnostic (ICD-10-PCS; 2018-11-21 08:15)
DX: C18.2 Malignant neoplasm of ascending colon (principal); K57.30 Diverticulosis of large intestine without perforation or abscess without bleeding; K64.4 Residual hemorrhoidal skin tags; K64.8 Other hemorrhoids; K29.50 Unspecified chronic gastritis without bleeding; K21.0 Gastro-esophageal reflux disease with esophagitis; K44.9 Diaphragmatic hernia without obstruction or gangrene; K31.89 Other diseases of stomach and duodenum; D50.9 Iron deficiency anemia, unspecified; E11.9 Type 2 diabetes mellitus without complications; I10 Essential (primary) hypertension; M19.90 Unspecified osteoarthritis, unspecified site; Z79.899 Other long term (current) drug therapy
CPT/HCPCS: 45380; 43239; 36415; 88312; 84132; 82565; 88305; 82378; 74177; Q9967; J2704 ×2; J2370

== ENCOUNTER 2018-11-30 07:18 | Day surgery (SDC) | payer OTHER ==
[2018-11-29 17:16] LABS: RBC Red Blood Cell Count 3.11 M/uL (3.86-4.86)
[2018-11-29 17:55] LABS: Ferritin 7.4 ng/mL (8-388); Folic Acid, (Folate) > 20.0 ng/mL (3.1-17.5); Transferrin 252 mg/dL (200-360)
--- OUTSIDE RECORDS SUMMARY | 2018-11-30 07:21 | XMS REPORT ---
[...] End Status Dosage System Date Date Flonase [facility] 15737715856 50 MCG/ACT Active 1 spray in Nasally Once a each day nostril Tramadol HCl [facility] 68243927760 50 MG Orally Active 1 tablet every 6 hrs as needed Metoprolol [facility] 10662741084 50 MG Orally Active 1 tablet Tartrate Twice a day with food Protonix [facility] 17447842663 40 MG Orally Active 1 tablet Once a day Losartan ND 88649402534 100 MG Orally Inactive 1 tablet Potassium Once a day Losartan ND 20465021284 100 Orally Once Active 1 tablet Potassium a day Lisinopril ND 98400034257 20 MG Orally May 17, Active 1 tablet Once a day 2017 Lasix ND 49046685269 20 MG Orally Active 1 tablet Once a day Macrobid [facility] 34842355763 100 MG Orally Active 1 capsule every 12 hrs with food Amlodipine [facility] 70764845098 10 MG Orally Active 1 tablet Besylate Once a day Ferrous [facility] 73780137503 325 (65 Fe) MG Active 1 tablet Sulfate Orally three times a day Potassium [facility] 76035648619 20 MEQ Orally May 21, Active 1 tablet Chloride ER Once a day 2017 with food Results No Known Results Immunizations Vaccine Administration Date FluAD May 21, 2018 Summary Purpose eClinicalWorks Submission
--- OUTSIDE RECORDS SUMMARY | 2018-11-30 07:21 | XMS REPORT ---
[...] Status Dosage System Date Date Lisinopril ND 76836331020 20 MG Orally Active 1 tablet Once a day Losartan ND 46883958199 100 MG Orally Inactive 1 tablet Potassium Once a day Macrobid ND 16464477600 100 MG Orally Active 1 capsule every 12 hrs with food Flonase ND 36929556823 50 MCG/ACT Active 1 spray in Nasally Once a each day nostril Ferrous ND 61216810252 325 (65 Fe) MG Inactive 1 tablet Sulfate Orally three times a day Metoprolol [facility] 79167010648 50 MG Orally Active 1 tablet Tartrate Twice a day with food Lasix [facility] 33960001581 20 Orally Once Active 1 tablet a day Losartan [facility] 78735350218 100 Orally Once Active 1 tablet Potassium a day Lasix [facility] 18629312543 20 MG Orally Active 1 tablet Once a day Tramadol HCl [facility] 95511228677 50 MG Orally Active 1 tablet every 6 hrs as needed Potassium [facility] 48103190470 20 MEQ Orally Active 1 tablet Chloride ER Once a day with food Amlodipine [facility] 26139091259 10 Orally Once Active 1 tablet Besylate a day Protonix [facility] 76387119956 40 Orally Once Active 1 tablet a day Amlodipine [facility] 66742235981 10 MG Orally Active 1 tablet Besylate Once a day Protonix [facility] 79180677234 40 MG Orally Active 1 tablet Once a day Results No Known Results Summary Purpose eClinicalWorks Submission
--- OUTSIDE RECORDS SUMMARY | 2018-11-30 07:21 | XMS REPORT ---
[...] End Status Dosage System Date Date Amlodipine [facility] 41423448979 10 Orally Once a Active 1 tablet Besylate day Integra Plus [facility] 24410562080 - Orally Once a Active 1 capsule day Lasix [facility] 19542790269 20 Orally Once a Active 1 tablet day Macrobid [facility] 49001979944 100 MG Orally Active 1 capsule every 12 hrs with food Potassium [facility] 84694600668 20 MEQ Orally Active 1 tablet Chloride ER Once a day with food Protonix [facility] 33645342630 40 MG Orally Active 1 tablet Once a day Protonix ND 25576972936 40 Orally Once a Active 1 tablet day Losartan ND 81965193795 100 Orally Once Active 1 tablet Potassium a day Tramadol HCl ND 00719188211 50 MG Orally Active 1 tablet every 6 hrs as needed Flonase [facility] 86084597827 50 MCG/ACT Active 1 spray in Nasally Once a each day nostril Lasix [facility] 12626555077 20 MG Orally Active 1 tablet Once a day Amlodipine [facility] 40957226000 10 MG Orally Active 1 tablet Besylate Once a day Metoprolol [facility] 58728967553 50 MG Orally Active 1 tablet Tartrate Twice a day with food Lisinopril [facility] 52491962276 20 MG Orally Active 1 tablet Once a day Results No Known Results Summary Purpose eClinicalWorks Submission
--- OUTSIDE RECORDS SUMMARY | 2018-11-30 07:21 | XMS REPORT ---
[...] Status Dosage System Date Date Metoprolol ND 26579598979 50 MG Orally Active 1 tablet Tartrate Twice a day with food Tramadol HCl ND 67645891904 50 MG Orally Active 1 tablet every 6 hrs as needed Losartan ND 37700077318 100 MG Orally January 30, Active 1 tablet Potassium Once a day 2017 Ferrous ND 52653599522 325 (65 Fe) MG Active 1 tablet Sulfate Orally three times a day Lasix ND 28939126651 20 MG Orally Active 1 tablet Once a day Flonase ND 28682354798 50 MCG/ACT Active 1 spray in Nasally Once a each day nostril Macrobid [facility] 07048285460 100 MG Orally Active 1 capsule every 12 hrs with food Amlodipine [facility] 01957711223 10 MG Orally Active 1 tablet Besylate Once a day Protonix [facility] 15918189247 40 MG Orally Active 1 tablet Once a day Results No Known Results Summary Purpose eClinicalWorks Submission
--- OUTSIDE RECORDS SUMMARY | 2018-11-30 07:22 | XMS REPORT ---
[...] Start Date End Date Status Dosage Lisinopril [facility] 68793277921 20 MG Orally Once Active 1 tablet a day Results No Known Results Summary Purpose eClinicalWorks Submission
--- OUTSIDE RECORDS SUMMARY | 2018-11-30 07:22 | XMS REPORT ---
[...] Dosage System Date Date Potassium Chloride ND 74231647339 20 MEQ Orally Active 1 tablet ER Once a day with food Amlodipine ND 20385681401 10 MG Orally Active 1 tablet Besylate Once a day Azithromycin ND 41135740466 500 MG Orally Active 2 tablets once a day on the first day, then 1 tablet daily for 4 days Integra Plus ND 11403468630 - Orally Once a Active 1 capsule day Flonase ND 94048707986 50 MCG/ACT Active 1 spray in Nasally Once a each day nostril Levocetirizine ND 61645612120 5 MG Orally August Active 1 tablet Dihydrochloride Once a day 2018 20, in the 2018 evening Zofran [facility] 32821884611 4 MG Orally August Active as Twice a day as 2018 directed needed for nausea Metoprolol [facility] 22711490424 50 MG Orally Active 1 tablet Tartrate Twice a day with food Protonix [facility] 10235473038 40 MG Orally Active 1 tablet Once a day Albuterol Sulfate [facility] 71349147299 108 (90 Base) Active 2 puffs as MCG/ACT needed Inhalation every 6 hrs Losartan Potassium [facility] 71916882757 100 Orally Once Active 1 tablet a day Flonase [facility] 01551294181 50 MCG/ACT August Active 1 spray in Nasally Once a 2018 each day nostril Lasix [facility] 26218735303 20 MG Orally Active 1 tablet Once a day Tramadol HCl [facility] 02736077167 50 MG Orally Active 1 tablet every 6 hrs as needed Lisinopril [facility] 37879154659 20 MG Orally Active 1 tablet Once a day Results No Known Results Summary Purpose eClinicalWorks Submission
--- OUTSIDE RECORDS SUMMARY | 2018-11-30 07:22 | XMS REPORT ---
[...] End Date Status Dosage System Date Zofran [facility] 91469962513 4 MG Orally September 20, Active as directed Twice a day as 2019 needed for nausea Results No Known Results Summary Purpose eClinicalWorks Submission
[2018-11-30] MEDS ORDERED: NA CHLORIDE 0.9% 500 ML ONE (08:58)
[2018-11-30 09:00] VITALS: O2SAT 98; BMI 28.3
[2018-11-30 15:56] VITALS: BP 114/63; TEMP 99.1
[2018-11-30 16:45] LABS: Hematocrit 28.7 % (36.0-45.0)
== END 2018-11-30 16:39 | disposition home or self-care (01) ==
LOC: DS 07:18
PROVIDERS: ATTEND Internal Medicine Medical Oncology
DX: D50.9 Iron deficiency anemia, unspecified (principal); D64.9 Anemia, unspecified
CPT/HCPCS: 36415 ×2; 86900 ×2; 86850 ×2; 85044; 86901 ×2; 85018; 85014; 82728; 82746; 82607; 83540; 84466; 36430; P9016 ×2

== ENCOUNTER 2022-01-04 15:15 | Emergency (ER) | payer OTHER ==
[2022-01-04 15:47] LABS: Hematocrit 43.9 % (36.0-45.0); Lymphocytes % 21.2 % (15.3-44.8); MCV 91.6 fL (80-100); MPV 8.8 fL (7.6-11.3); RBC Red Blood Cell Count 4.79 M/uL (3.86-4.86)
[2022-01-04 15:50] LABS: Protime INR 1.04
--- NOTE | 2022-01-04 15:55 | RAD REPORT ---
EXAM DESCRIPTION: CT - CTHCSPWOC - 01/04/2022 3:43 pm CLINICAL HISTORY: Trauma, head and neck injury. fall COMPARISON: Head C Spine Mpr Wo Con dated 07/09/2016 TECHNIQUE: Axial 5 mm thick images of the head were obtained. Axial 2 mm thick images of the cervical spine were obtained with sagittal and coronal reconstruction images generated and reviewed. All CT scans are performed using dose optimization technique as appropriate and may include automated exposure control or mA/KV adjustment according to patient size. FINDINGS: CT HEAD WITHOUT CONTRAST: No acute hemorrhage, hydrocephalus or extra-axial collection is identified.Mild generalized brain atr ophy is present with mild periventricular and deep white matter chronic microvascular ischemic change s.No areas of brain edema or midline shift. Mild mucosal thickening involving the inferior maxillary antra. The paranasal sinuses and mastoids ar e otherwise clear.The calvarium is intact. Headache sided scalp hematoma is noted. CT CERVICAL SPINE WITHOUT CONTRAST: No fracture or subluxation.Moderate lower lumbar degenerative changes are present. 4 mm degenerative anterolisthesis of C3 on 4 is present 5 mm degenerative anterolisthesis C4 on 5.No prevertebral soft tissues swelling is identified. IMPRESSION: No acute intracranial or cervical spine findings. Moderate multilevel cervical degenerative changes particularly at the lower cervical levels.
[2022-01-04 16:05] LABS: Potassium 3.6 mmol/L (3.5-5.1); Troponin High Sensitivity 5.9 pg/mL (<58.9)
--- NOTE | 2022-01-04 16:09 | RAD REPORT ---
EXAM DESCRIPTION: RAD - Wrist Right 3 View - 01/04/2022 4:02 pm CLINICAL HISTORY: DEFORMITY Pain COMPARISON: Wrist Right 3 View dated 07/09/2016 FINDINGS: Diffuse osteopenia is seen. Arthritic changes are present. No definitive fracture seen. A ssessment is limited by the high degree of osteopenia, however.
[2022-01-04] MEDS ORDERED: ACETAMINOPHEN 500 MG TAB ONE (16:40)
--- NOTE | 2022-01-04 17:13 | EDPHYS ---
Physician Documentation [facility] Name: Jazzy Maria Age: 86 yrs Sex: Female : 1935 Arrival Date: 01/04/2022 Time: 15:19 Bed 17 Private MD: ED Physician Albino Markham HPI: 01/04 15:25 This 86 yrs old Female presents to ER via EMS with complaints of Right wrist pain and jl9 right frontal head pain.. 15:25 Details of fall: The patient fell from an upright position, while walking. Onset: The jl9 symptoms/episode began/occurred just prior to arrival. Associated injuries: The patient sustained injury to the head, hematoma. Historical: - PMHx: 15:22 Anemia; CHF; Hypertension; Osteoporosis; Pre Diabetes; jh6 - Immunization history:: Adult Immunizations up to date, Client reports receiving the 2nd dose of the Covid vaccine. - Social history:: Smoking status: Patient denies any tobacco usage or history of. - Immunization history: Last tetanus immunization: unknown. ROS: 15:26 Constitutional: Negative for fever, chills, and weight loss, Eyes: Negative for injury, jl9 pain, redness, and discharge, ENT: Negative for injury, pain, and discharge, Cardiovascular: Negative for chest pain, palpitations, and edema, Respiratory: Negative for shortness of breath, cough, wheezing, and pleuritic chest pain, Abdomen/GI: Negative for abdominal pain, nausea, vomiting, diarrhea, and constipation, Back: Negative for injury and pain, : Negative for injury, bleeding, discharge, and swelling, Neuro: Negative for headache, weakness, numbness, tingling, and seizure, Allergy/Immunology: Negative for hives, rash, and allergies. 15:26 Neck: Positive for pain with movement. 15:26 MS/extremity: Positive for tenderness, of the right wrist. 15:26 Skin: Positive for hematoma, of the right side of forehead. 15:26 Neuro: Negative for altered mental status. Exam: 15:31 Constitutional: This is a well developed, well nourished patient who is awake, alert, jl9 and in no acute distress. Eyes: Pupils equal round and reactive to light, extra-ocular motions intact. ENT: Mucous membranes moist. Chest/axilla: Normal chest wall appearance and motion. Nontender with no deformity. No lesions are appreciated. Cardiovascular: Regular rate and rhythm with a normal S1 and S2. No gallops, murmurs, or rubs. Normal PMI, no JVD. No pulse deficits. Respiratory: Lungs have equal breath sounds bilaterally, clear to auscultation and percussion. No rales, rhonchi or wheezes noted. No increased work of breathing, no retractions or nasal flaring. Abdomen/GI: Soft, non-tender, with normal bowel sounds. No distension or tympany. No guarding or rebound. No evidence of tenderness throughout. Back: No spinal tenderness. No costovertebral tenderness. Full range of motion. Female : Normal external genitalia. Skin: Warm, dry with normal turgor. Normal color with no rashes, no lesions, and no evidence of cellulitis. Neuro: Awake and alert, GCS 15, oriented to person, place, time, and situation. Cranial nerves II-XII grossly intact. Motor strength 5/5 in all extremities. Sensory grossly intact. Cerebellar exam normal. Normal gait. 15:31 Head/face: Noted is hematoma, that is moderate, of the right side of forehead. 15:31 Neck: C-spine: C-collar placed [employer]. 15:31 Musculoskeletal/extremity: Extremities: grossly normal except: noted in the right wrist: tenderness. Vital Signs: 15:20 BP 133 / 66; Pulse 87; Resp 16; Temp 98.8(O); Pulse Ox 98% ; Weight 104.33 kg; Height 5 jh6 ft. 6 in. (167.64 cm); Pain 4/10; 15:20 Body Mass Index 37.12 (104.33 kg, 167.64 cm) jh6 Cherrie Coma Score: 15:37 Eye Response: spontaneous(4). Verbal Response: confused(4). Motor Response: obeys song commands(6). Total: 14. Trauma Score (Adult): 15:37 Eye Response: spontaneous(1); Verbal Response: confused(1); Motor Response: obeys song commands(2); Systolic BP: > 89 mm Hg(4); Respiratory Rate: 10 to 29 per min(4); Cherrie Score: 14; Trauma Score: 12 Procedures: 16:26 Cervical collar removed, at January 04, 2022 at 16:26. jl9 MDM: 15:29 Data reviewed: vital signs, nurses notes. 15:39 Patient medically screened. 01/04 15:24 Order name: Basic Metabolic Panel; Complete Time: 16:08 01/04 15:24 Order name: CBC with Diff; Complete Time: 16:08 01/04 15:24 Order name: CT Head C Spine; Complete Time: 16:08 01/04 15:24 Order name: PT-INR; Complete Time: 16:08 01/04 15:24 Order name: Ptt, Activated; Complete Time: 16:07 01/04 15:24 Order name: Troponin High Sensitivity; Complete Time: 16:07 01/04 15:24 Order name: Labs collected and sent; Complete Time: 16:30 01/04 15:24 Order name: Wrist Right 3 View XRAY; Complete Time: 16:11 01/04 15:35 Order name: EKG; Complete Time: 15:36 01/04 16:44 Order name: Dermabond; Complete Time: 17:33 jl Administered Medications: 16:35 Drug: Acetaminophen 1000 mg Route: PO; song 16:35 Follow up: Response: No adverse reaction song Disposition Summary: 01/04/22 17:12 Discharge Ordered Location: Home jl9 Condition: Stable jl9 Diagnosis - Fall on same level, unspecified jl9 - Superficial injury of scalp jl9 Followup: jl9 - With: Private Physician - When: 1 - 2 days - Reason: Recheck today's complaints, Continuance of care, Re-evaluation by your physician Discharge Instructions: - Discharge Summary Sheet jl9 - Fall Prevention in the Home, Adult, [id number] jl9 - Head Injury, Adult, [id number] jl9 Forms: - Medication Reconciliation Form jl9 - Thank You Letter jl9 - Antibiotic Education jl9 - Prescription Opioid Use jl9 Signatures: Dispatcher [employer] Prema Andres RN RN jh6 Au-StagerMargret RN RN ha Linares, John jl9
--- NOTE | 2022-01-04 17:13 | ER ---
Nurse's Notes [facility] Name: Jazzy Maria Age: 86 yrs Sex: Female : 1935 Arrival Date: 01/04/2022 Time: 15:19 Bed 17 Private MD: Diagnosis: Fall on same level, unspecified;Superficial injury of scalp Presentation: 01/04 15:20 Chief complaint: EMS states: Pt fall from standing position with syncope. Head strike jh6 to rt temporal area and rt hand deformity and swelling. c collar placed scow captain and bs 141. Coronavirus screen: Vaccine status: Patient reports receiving the 2nd dose of the covid vaccine. Ebola Screen: Patient negative for fever greater than or equal to 101.5 degrees Fahrenheit, and additional compatible Ebola Virus Disease symptoms Patient denies exposure to infectious person. Patient denies travel to an Ebola-affected area in the 21 days before illness onset. Initial Sepsis Screen: Does the patient meet any 2 criteria? No. Patient's initial sepsis screen is negative. Does the patient have a suspected source of infection? No. Patient's initial sepsis screen is negative. Risk Assessment: Do you want to hurt yourself or someone else? Patient reports no desire to harm self or others. Onset of symptoms was January 04, 2022. 15:20 Method Of Arrival: EMS: [facility] 15:20 Acuity: CYRUS 3 [facility] 15:38 Care prior to arrival: None. Mechanism of Injury: Fall. Trauma event details: Injury song occurred: January 04, 2022. Triage Assessment: 15:23 General: Appears in no apparent distress. Behavior is calm, cooperative. Pain: 6 Complains of pain in right side of forehead and right hand. Neuro: No deficits noted. Level of Consciousness is awake, alert, Oriented to person, place, Cat Skinner are equal bilaterally. Trauma Activation: Alert Physician: ED Physician; Name: ; Notified At: ; Arrived At: Physician: General Surgeon; Name: ; Notified At: ; Arrived At: Physician: Radiology; Name: ; Notified At: ; Arrived At: Physician: Respiratory; Name: ; Notified At: ; Arrived At: Physician: Lab; Name: ; Notified At: ; Arrived At: Historical: - PMHx: 15:22 Anemia; CHF; Hypertension; Osteoporosis; Pre Diabetes; jh6 - Immunization history:: Adult Immunizations up to date, Client reports receiving the 2nd dose of the Covid vaccine. - Social history:: Smoking status: Patient denies any tobacco usage or history of. - Immunization history: Last tetanus immunization: unknown. Screenin:35 Abuse screen: Denies threats or abuse. Denies injuries from another. Nutritional song screening: No deficits noted. Tuberculosis screening: No symptoms or risk factors identified. Fall Risk Mental Status- Overestimates/Forgets Limitations (15 pts.). Primary Survey: 15:37 NO uncontrolled hemorrhage observed. A: The client is awake and alert. The airway is song patent. The client is alert. Breathing/Chest: Spontaneous respiratory effort, equal unlabored respirations, breath sounds clear bilaterally, regular pattern, symmetrical chest rise and fall. Respiratory effort: spontaneous, unlabored. Circulation: No external hemorrhage present. Regular and strong central pulse, skin warm/dry/normal color. Disability Client is alert. Exposure/Environment: A warming method has been applied: A warm blanket has been provided to the patient. 15:38 Reassessment Alertness and Airway: Awake and alert. The airway is patent. Airway Patent song Breathing: Circulation: No external hemorrhage noted. Regular and strong central pulse, skin warm/dry/normal color. Disability: Alert. Assessment: 15:35 General: Appears in no apparent distress. Behavior is calm, cooperative. Pain: song Complains of pain in right hand and right arm. Derm: Wound noted right hand Wound is skin tear laceration to right upper forehead. Vital Signs: 15:20 BP 133 / 66; Pulse 87; Resp 16; Temp 98.8(O); Pulse Ox 98% ; Weight 104.33 kg; Height 5 [facility] ft. 6 in. (167.64 cm); Pain 4/10; 15:20 Body Mass Index 37.12 (104.33 kg, 167.64 cm) [facility] Cherrie Coma Score: 15:37 Eye Response: spontaneous(4). Verbal Response: confused(4). Motor Response: obeys song commands(6). Total: 14. Trauma Score (Adult): 15:37 Eye Response: spontaneous(1); Verbal Response: confused(1); Motor Response: obeys song commands(2); Systolic BP: > 89 mm Hg(4); Respiratory Rate: 10 to 29 per min(4); Cherrie Score: 14; Trauma Score: 12 ED Course: 15:19 Patient arrived in ED. 6 15:20 Brendan Agosto is PHCP. jl9 15:22 Margret Simon, RN is Primary Nurse. song 15:22 Triage completed. [facility] 15:23 Arm band placed on left wrist. 6 15:23 Inserted saline lock: 20 gauge in right antecubital area, using aseptic technique. tp1 Blood collected. 15:35 Patient has correct armband on for positive identification. Bed in low position. Adult song w/ patient. 15:35 No provider procedures requiring assistance completed. song 15:37 Patient maintains SpO2 saturation greater than 95% on room air. song 15:39 Thermoregulation: warm blanket given to patient. song 15:45 CT Head C Spine In Process Unspecified. EDMS 15:56 Albino Markham DO is Attending Physician. jl9 16:05 Wrist Right 3 View XRAY In Process Unspecified. EDMS 18:24 Patient did not have IV access during this emergency room visit. song Administered Medications: 16:35 Drug: Acetaminophen 1000 mg Route: PO; song 16:35 Follow up: Response: No adverse reaction song Medication: 15:35 VIS not applicable for this client. song Intake: 15:37 PO: 0ml; Total: 0ml. song Outcome: 17:12 Discharge ordered by . jl9 18:24 Discharged to home via wheelchair, with family. song 18:24 Condition: good 18:24 Discharge instructions given to patient, family. 18:24 Patient left the ED. song Signatures: Dispatcher [employer] EDNH Prema Hays RN RN jh6 Parker, Tiffany tp1 Margret Simon RN RN ha Linares, John jl9
[2022-01-04] MEDS ORDERED: DERMABOND SKIN ADHESIVE TOP ONE (17:15)
[2022-01-04 19:09] VITALS: BP 133/66; TEMP 98.8; O2SAT 98
== END 2022-01-04 18:24 | disposition home or self-care (01) ==
LOC: ER 15:15
DX: S00.03XA Contusion of scalp, initial encounter (principal); W18.30XA Fall on same level, unspecified, initial encounter; I10 Essential (primary) hypertension
CPT/HCPCS: 36415; 70450; 72125; 80048; 84484; 85025; 85610; 85730

== ENCOUNTER 2022-06-20 19:10 | Emergency (ER) | payer OTHER ==
--- OUTSIDE RECORDS SUMMARY | 2022-06-20 19:15 | XMS REPORT | Continuity of Care Document ---
:1935 Author Organization [facility] t Address [address] [place] [address] Care Team Providers Name Role Phone Asked, No Pcp Primary Care Physician Unavailable Angelina Koch Attending Clinician Unavailable Payers Payer Name Policy Type Policy Effective Date Expiration Date Sour ce Number [facility] 1 [id number] 2021 Common TRS/ERS MCR PPO 00:00:00 Spirit [facility] [id number] [facility] [id number] [facility] Problems Condition Condition Condition Status Onset Resolution Last Treating Co mments Source Name Details Category Date Date Treatment Clinician Date Colon Colon Disease Active Methodi cancer cancer 01-09 00:00: Hospita 00 l [id number] Seasonal Problem Comm on allergic Spirit rhinitis, - [facility] unspecifie [facility] Essential Essential Problem Com mon hypertensi (primary) Spi rit on hypertensi - [facility]I on [facility] Iron Iron Problem Common deficiency deficiency Sp edmundo anemia due anemia due - CHI to chronic to chronic St blood loss blood loss [facility] [id number] Iron Problem Common deficiency Spirit anemia due - CHI to dietary [facility] 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 Unsteady Unsteady Problem Commo n gait gait Spirit [facility] Edema Edema, Problem Common lower Spirit extremity - [facility] [id number] Pain in Problem Common joint of Spirit right knee - [facility] Diastolic Diastolic Problem Com mon heart congestive [facility] failure heart - [facility] failure [facility] [id number] Venous Problem Commo n [id number] insufficie Spiri t ncy - [facility] (chronic) ([facility] Gastroesop Gastroesop Problem C ommon hageal hageal Spirit reflux reflux - CHI disease disease [facility] esophagiti esophagiti Ma dical s [facility] [id number] Pure Problem Common hyperchole [facility] sterolemia [facility] [id number] Screening Problem Com mon for Spirit malignant - [facility] neoplasm [facility] 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, Spirit multiple multiple - CHI joints sites [facility] [id number] Edema, Problem Common unspecifie Spirit d [facility] Prediabete Prediabete Problem C ommon s s Spirit [facility] [id number] Primary Problem Comm on osteoarthr Spirit itis of - CHI right knee [facility] [id number] Primary Problem Comm on osteoarthr Spirit itis of - CHI left knee [facility] [id number] Seasonal Problem Comm on allergies [facility] [id number] Allergic Problem Commo n arthritis [facility] Chronic Stage 3a Problem Common kidney chronic Spirit disease kidney - [facility] stage 3A disease [facility] Carpal Carpal Problem Common tunnel tunnel Spirit syndrome syndrome - [facility] Hypertensi HTN Problem Commo n on (hypertens Spirit ion) - [facility] [id number] History of Problem Co mmon colon Spirit cancer, - CHI stage II [facility] [id number] +5th digit Problem Co mmon eff Spirit 04/02/20*CK - CHI D (chronic kidney [facility] disease), Medical stage III Center [id number] Low serum Problem Com mon iron Spirit [facility] 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 [facility] Allergies, Adverse Reactions, Alerts Allergy Allergy Status Severity Reaction(s) Onset Inactive Treating Comm ents Source Name Type Date Date Clinician Gricelda Reynolds Active Methodi ty to 12-28 st adverse 00:00: Hospita reaction 00 l s to drug Family History Family Member Diagnosis Comments Start Date Stop Date Source Natural son [facility] Natural son Lymphoma [facility] Social History Social Habit Start Date Stop Date Quantity Comments Source History of Common Spirit - Tobacco Use [facility] History SDOH [facility] Binge [facility] History SDOH [facility] Std Hospital Drinks Alcohol intake 2019-02-19 2019-02-19 Lifetime [facility] 00:00:00 00:00:00 non-drinker Hospital (finding) History SDOH 2019-01-09 2019-01-09 1 Worship Alcohol Frequency 00:00:00 00:00:00 Hospita l Tobacco use and 2018-12-14 2018-12-14 Smokeless tobacco [facility] exposure 00:00:00 00:00:00 non-user Hospital Sex Assigned At [birth year] [facility] 00:00:00 00:00:00 Hospital Smoking Status Start Date Stop Date Source Never Smoker Common Spirit - [facility] Medications Ordered Filled Start Stop Current Ordering Indication Dosage Frequency Signature Comments Components Source Medication Medication Date Date Medication? Clinician (SIG) Name Name Flonase 50 Flonase 50 No 2{spray QD Flonase 50 MCG/ACT MCG/ACT 4-14 _in_eac MCG/ACT 00:00: h_nostr 00 il} Flonase 50 Flonase 50 No 2{spray QD Flonase 50 MCG/ACT MCG/ACT 4-14 _in_eac MCG/ACT 00:00: h_nostr 00 il} Macrobid Macrobid 2020-07- No 1{capsu BID Macrobid 100 MG 100 MG 08-11 le_with 100 MG 00:00: 00:00 _food} 00 :00 Macrobid Macrobid 2020-07- No 1{capsu BID Macrobid 100 MG 100 MG 08-11 le_with 100 MG 00:00: 00:00 _food} 00 :00 lisinopril Yes 20mg QD Take 20 mg M ethodi (PRINIVIL,Z 7-[address] ESTRIL) 20 15:18: daily. Hospi ta mg tablet 29 l metoprolol 2019-0 Yes 50mg QD Take 50 mg M ethodi succinate 7-[address] XL 15:18: daily. Hospita (TOPROL-XL) 29 l 50 mg 24 hr tablet amLODIPine 2019-0 Yes 10mg QD Take 10 mg M ethodi (NORVASC) 7-[address] 10 mg 15:18: daily. Hospita tablet 29 l furosemide 2019-0 Yes 20mg Q.5D Take 20 mg M ethodi (LASIX) 20 7-[address] mg tablet 15:18: (two) Hospita 29 times a l day. pantoprazol 2019-0 Yes 40mg QD Take 40 mg Methodi e 7-[address] (PROTONIX) 15:18: daily. Hospi ta 40 MG EC 29 l tablet POTASSIUM 2019-0 Yes 20meq QD Take 20 Meth lilly CHLORIDE 7-[address] ORAL 15:18: mouth Hospita 29 daily. l iron fum,ps 2019-0 Yes 1{capsu QD Take 1 M ethodi cmp/vit 7-14 le} capsule by st C/niacin 15:18: mouth Hospita (INTEGRA 29 daily. l ORAL) cholecalcif 2019-0 Yes 2000U Q.5D Take 2,000 Methodi elaine, 7-[address] vitamin D3, 15:18: mouth 2 Hos lee (VITAMIN 29 (two) l D3) 2,000 times a unit day. capsule capsule vitamin B 2019-0 Yes Take by Metho di complex (B 7-[address] COMPLEX 1 15:18: Hospita ORAL) 29 l vitamin E 2019-0 Yes 1000U QD Take 1,000 M ethodi 1000 UNIT 7-[address] capsule 15:18: mouth Hospita 29 daily. l diphenhydrA 2019-0 Yes 25mg Q6H Take 25 mg Methodi MINE 7-[address] (BENADRYL) 15:18: every 6 Hosp [place] 25 mg 29 (six) l capsule hours as needed for itching. loperamide 2019-0 Yes 2mg Q.25D Take 2 mg M ethodi (IMODIUM) 2 7-[address] mg capsule 15:18: (four) Hospi ta 29 times a l day as needed for diarrhea. Flonase Flonase Yes Na Koch 1 spray in Common 3-22 each Spirit 00:00: nostril - [facility] Flonase 50 Flonase 50 No 1{spray QD Flonase 50 MCG/ACT MCG/ACT 3-22 _in_eac MCG/ACT 00:00: h_nostr 00 il} Flonase 50 Flonase 50 No 1{spray QD Flonase 50 MCG/ACT MCG/ACT 3-22 _in_eac MCG/ACT 00:00: h_nostr 00 il} Flonase 50 Flonase 50 No 1{spray QD Flonase 50 MCG/ACT MCG/ACT 3-22 _in_eac MCG/ACT 00:00: h_nostr 00 il} Flonase 50 Flonase 50 No 1{spray QD Flonase 50 MCG/ACT MCG/ACT 3-22 _in_eac MCG/ACT 00:00: h_nostr 00 il} Flonase 50 Flonase 50 No 1{spray QD Flonase 50 MCG/ACT MCG/ACT 3-22 _in_eac MCG/ACT 00:00: h_nostr 00 il} Flonase 50 Flonase 50 No 1{spray QD Flonase 50 MCG/ACT MCG/ACT 3-22 _in_eac MCG/ACT 00:00: h_nostr 00 il} Flonase 50 Flonase 50 No 1{spray QD Flonase 50 MCG/ACT MCG/ACT 3-22 _in_eac MCG/ACT 00:00: h_nostr 00 il} Zofran Zofran Yes Na Koch as Common 3-21 directed Spirit 00:00: - [facility] Zofran 4 MG Zofran 4 MG No Zofran 4 3-21 MG 00:00: 00 Zofran 4 MG Zofran 4 MG No Zofran 4 3-21 MG 00:00: 00 Zofran 4 MG Zofran 4 MG No Zofran 4 3-21 MG 00:00: 00 Zofran 4 MG Zofran 4 MG 2019-0 No Zofran 4 3-21 MG 00:00: 00 Zofran 4 MG Zofran 4 MG 2019-0 No Zofran 4 3-21 MG 00:00: 00 Zofran 4 MG Zofran 4 MG 2019-0 No Zofran 4 3-21 MG 00:00: 00 Zofran 4 MG Zofran 4 MG 2019-0 No Zofran 4 3-21 MG 00:00: 00 Bupivicaine Bupivicaine 2018-0 No 5mL Common Swink Swink 03-08 Spirit 00:00: - [facility] Depo Medrol Depo Medrol 0 No 1mL Common (40mg) (40mg) 03-08 Spirit 00:00: - [facility] Bupivicaine Bupivicaine 2018-0 No 5mL Common Swink Swink 03-08 Spirit 00:00: - [facility] Depo Medrol Depo Medrol 2018-0 No 1mL Common (40mg) (40mg) 03-08 Spirit 00:00: - [facility] Bupivicaine Bupivicaine 2018-0 No 5mL Common Swink Swink 03-08 Spirit 00:00: - [facility] Depo Medrol Depo Medrol 2018-0 No 1mL Common (40mg) (40mg) 03-08 Spirit 00:00: - [facility] Bupivicaine Bupivicaine 2018-0 No 5mL Common Swink Swink 03-08 Spirit 00:00: - [facility] Depo Medrol Depo Medrol 20180 No 1mL Common (40mg) (40mg) 03-08 Spirit 00:00: - [facility] Amlodipine Amlodipine Yes Na Koch 1 tablet Common Besylate Besylate [facility] Protonix Protonix Yes Na Koch 1 tablet Common [facility] Lasix Lasix Yes Na Koch 1 tablet Common [facility] Azithromyci Azithromyci Yes Na Koch 2 tablets Common n n on the Spirit first day, - CHI then [address] tablet [facility] daily for Medical 4 days Center Ferrous Ferrous Yes Na Koch 1 tablet Co mmon Sulfate Sulfate [facility] Flonase Flonase Yes Na Koch 1 spray in Common each [facility] nostril [facility] Losartan Losartan Yes Na Koch 1 tablet Common Potassium Potassium Spiri [facility] Potassium Potassium Yes Na Koch 1 tablet Common Chloride ER Chloride ER with food [facility] Amlodipine Amlodipine Yes Na Koch 1 tablet Common Besylate Besylate [facility] Metoprolol Metoprolol Yes Na Koch 1 tablet Common Tartrate Tartrate with food Sp [facility] Lisinopril Lisinopril Yes Na Koch 1 tablet Common [facility] Integra Integra Yes Na Koch 1 capsule C ommon Plus Plus [facility] Tramadol Tramadol Yes Na Koch 1 tablet Common HCl HCl as needed [facility] Albuterol Albuterol Yes Na Koch 2 puffs as Common Sulfate Sulfate needed [facility] Metoprolol Metoprolol Yes Na Koch 1 tablet Common Tartrate Tartrate with food [facility] Amlodipine Amlodipine Yes Na Koch 1 tablet Common Besylate Besylate [facility] amLODIPine amLODIPine No 1{table QD amLODIPine Besylate 10 Besylate 10 t} Besylate mg mg 10 mg Metoprolol Metoprolol No 1{table BID Metoprolol Tartrate 50 Tartrate 50 t_with_ Tartrate MG MG food} 50 MG Lasix 20 MG Lasix 20 MG No 1{table QD Lasix 20 t} MG amLODIPine amLODIPine No 1{table QD amLODIPine Besylate 10 Besylate 10 t} Besylate MG MG 10 MG Integra Integra No 1{capsu QD Integra Plus - Plus - le} Plus - amLODIPine amLODIPine No 1{table QD amLODIPine Besylate 10 Besylate 10 t} Besylate MG MG 10 MG Lisinopril Lisinopril No Lisinopril 20 MG 20 MG 20 MG Ferrous Ferrous No 1{table TID Ferrous Sulfate 325 Sulfate 325 t} Sulfate (65 Fe) MG (65 Fe) MG 325 (65 Fe) MG Ferrous Ferrous No 1{table TID Ferrous Sulfate 325 Sulfate 325 t} Sulfate (65 Fe) MG (65 Fe) MG 325 (65 Fe) MG Metoprolol Metoprolol No Metoprolol Tartrate 50 Tartrate 50 Tartrate MG MG 50 MG Lisinopril Lisinopril No 1{table QD Lisinopril 20 MG 20 MG t} 20 MG Pantoprazol Pantoprazol No Pantoprazo e Sodium 40 e Sodium 40 le Sodium MG MG 40 MG Azithromyci Azithromyci No QD Azithromyc n 500 MG n 500 MG in 500 MG amLODIPine amLODIPine No 1{table QD amLODIPine Besylate 10 Besylate 10 t} Besylate 10 Albuterol Albuterol No 2{puffs QID Albuterol Sulfate 108 Sulfate 108 _as_nee Sulfate (90 Base) (90 Base) ded} 108 (90 MCG/ACT MCG/ACT Base) MCG/ACT Protonix 40 Protonix 40 No 1{table QD Protonix MG MG t} 40 MG amLODIPine amLODIPine No 1{table QD amLODIPine Besylate 10 Besylate 10 t} Besylate mg mg 10 mg traMADol traMADol No 1{table QID traMADol HCl 50 MG HCl 50 MG t_as_ne HCl 50 MG eded} Flonase 50 Flonase 50 No 1{spray QD Flonase 50 MCG/ACT MCG/ACT _in_eac MCG/ACT h_nostr il} Losartan Losartan No 1{table QD Losartan Potassium Potassium t} Potassium 100 100 100 Lasix 20 MG Lasix 20 MG No 1{table QD Lasix 20 t} MG Lasix 20 MG Lasix 20 MG No 1{table QD Lasix 20 t} MG FeroSul 325 FeroSul 325 No FeroSul (65 Fe) MG (65 Fe) MG 325 (65 Fe) MG Lisinopril Lisinopril No 1{table QD Lisinopril 20 MG 20 MG t} 20 MG amLODIPine amLODIPine No 1{table QD amLODIPine Besylate 10 Besylate 10 t} Besylate mg mg 10 mg Protonix 40 Protonix 40 No 1{table QD Protonix MG MG t} 40 MG amLODIPine amLODIPine No 1{table QD amLODIPine Besylate 10 Besylate 10 t} Besylate MG MG 10 MG Lisinopril Lisinopril No Lisinopril 20 MG 20 MG 20 MG Ferrous Ferrous No 1{table TID Ferrous Sulfate 325 Sulfate 325 t} Sulfate (65 Fe) MG (65 Fe) MG 325 (65 Fe) MG Metoprolol Metoprolol No Metoprolol Tartrate 50 Tartrate 50 Tartrate MG MG 50 MG Integra Integra No 1{capsu QD Integra Plus - Plus - le} Plus - Flonase 50 Flonase 50 No 1{spray QD Flonase 50 MCG/ACT MCG/ACT _in_eac MCG/ACT h_nostr il} Albuterol Albuterol No 2{puffs QID Albuterol Sulfate 108 Sulfate 108 _as_nee Sulfate (90 Base) (90 Base) ded} 108 (90 MCG/ACT MCG/ACT Base) MCG/ACT traMADol traMADol No 1{table QID traMADol HCl 50 MG HCl 50 MG t_as_ne HCl 50 MG eded} Pantoprazol Pantoprazol No Pantoprazo e Sodium 40 e Sodium 40 le Sodium MG MG 40 MG Ferrous Ferrous No 1{table TID Ferrous Sulfate 325 Sulfate 325 t} Sulfate (65 Fe) MG (65 Fe) MG 325 (65 Fe) MG Lasix 20 MG Lasix 20 MG No 1{table QD Lasix 20 t} MG FeroSul 325 FeroSul 325 No FeroSul (65 Fe) MG (65 Fe) MG 325 (65 Fe) MG amLODIPine amLODIPine No 1{table QD amLODIPine Besylate 10 Besylate 10 t} Besylate 10 Azithromyci Azithromyci No QD Azithromyc n 500 MG n 500 MG in 500 MG Losartan Losartan No 1{table QD Losartan Potassium Potassium t} Potassium 100 100 100 Lasix 20 MG Lasix 20 MG No 1{table QD Lasix 20 t} MG Lisinopril Lisinopril No 1{table QD Lisinopril 20 MG 20 MG t} 20 MG amLODIPine amLODIPine No 1{table QD amLODIPine Besylate 10 Besylate 10 t} Besylate mg mg 10 mg Protonix 40 Protonix 40 No 1{table QD Protonix MG MG t} 40 MG amLODIPine amLODIPine No 1{table QD amLODIPine Besylate 10 Besylate 10 t} Besylate MG MG 10 MG Lisinopril Lisinopril No Lisinopril 20 MG 20 MG 20 MG Ferrous Ferrous No 1{table TID Ferrous Sulfate 325 Sulfate 325 t} Sulfate (65 Fe) MG (65 Fe) MG 325 (65 Fe) MG Metoprolol Metoprolol No Metoprolol Tartrate 50 Tartrate 50 Tartrate MG MG 50 MG Integra Integra No 1{capsu QD Integra Plus - Plus - le} Plus - Flonase 50 Flonase 50 No 1{spray QD Flonase 50 MCG/ACT MCG/ACT _in_eac MCG/ACT h_nostr il} Albuterol Albuterol No 2{puffs QID Albuterol Sulfate 108 Sulfate 108 _as_nee Sulfate (90 Base) (90 Base) ded} 108 (90 MCG/ACT MCG/ACT Base) MCG/ACT traMADol traMADol No 1{table QID traMADol HCl 50 MG HCl 50 MG t_as_ne HCl 50 MG eded} Pantoprazol Pantoprazol No Pantoprazo e Sodium 40 e Sodium 40 le Sodium MG MG 40 MG Ferrous Ferrous No 1{table TID Ferrous Sulfate 325 Sulfate 325 t} Sulfate (65 Fe) MG (65 Fe) MG 325 (65 Fe) MG Lasix 20 MG Lasix 20 MG No 1{table QD Lasix 20 t} MG FeroSul 325 FeroSul 325 No FeroSul (65 Fe) MG (65 Fe) MG 325 (65 Fe) MG amLODIPine amLODIPine No 1{table QD amLODIPine Besylate 10 Besylate 10 t} Besylate 10 Azithromyci Azithromyci No QD Azithromyc n 500 MG n 500 MG in 500 MG Losartan Losartan No 1{table QD Losartan Potassium Potassium t} Potassium 100 100 100 Lasix 20 MG Lasix 20 MG No 1{table QD Lasix 20 t} MG FeroSul 325 FeroSul 325 No FeroSul (65 Fe) MG (65 Fe) MG 325 (65 Fe) MG Protonix 40 Protonix 40 No 1{table QD Protonix MG MG t} 40 MG Lisinopril Lisinopril No Lisinopril 20 MG 20 MG 20 MG Metoprolol Metoprolol No 1{table BID Metoprolol Tartrate 50 Tartrate 50 t_with_ Tartrate MG MG food} 50 MG Potassium Potassium No 1{table QD Potassium Chloride ER Chloride ER t_with_ Chloride 20 MEQ 20 MEQ food} ER 20 MEQ Albuterol Albuterol No 2{puffs QID Albuterol Sulfate 108 Sulfate 108 _as_nee Sulfate (90 Base) (90 Base) ded} 108 (90 MCG/ACT MCG/ACT Base) MCG/ACT Metoprolol Metoprolol No Metoprolol Tartrate 50 Tartrate 50 Tartrate MG MG 50 MG Flonase 50 Flonase 50 No 1{spray QD Flonase 50 MCG/ACT MCG/ACT _in_eac MCG/ACT h_nostr il} traMADol traMADol No 1{table QID traMADol HCl 50 MG HCl 50 MG t_as_ne HCl 50 MG eded} Lisinopril Lisinopril No 1{table QD Lisinopril 20 MG 20 MG t} 20 MG amLODIPine amLODIPine No 1{table QD amLODIPine Besylate 10 Besylate 10 t} Besylate 10 Lasix 20 MG Lasix 20 MG No 1{table QD Lasix 20 t} MG Ferrous Ferrous No 1{table TID Ferrous Sulfate 325 Sulfate 325 t} Sulfate (65 Fe) MG (65 Fe) MG 325 (65 Fe) MG Pantoprazol Pantoprazol No Pantoprazo e Sodium 40 e Sodium 40 le Sodium MG MG 40 MG Azithromyci Azithromyci No QD Azithromyc n 500 MG n 500 MG in 500 MG Ferrous Ferrous No 1{table TID Ferrous Sulfate 325 Sulfate 325 t} Sulfate (65 Fe) MG (65 Fe) MG 325 (65 Fe) MG amLODIPine amLODIPine No amLODIPine Besylate 10 Besylate 10 Besylate MG MG 10 MG Lasix 20 MG Lasix 20 MG No 1{table QD Lasix 20 t} MG Losartan Losartan No 1{table QD Losartan Potassium Potassium t} Potassium 100 100 100 amLODIPine amLODIPine No 1{table QD amLODIPine Besylate 10 Besylate 10 t} Besylate MG MG 10 MG Integra Integra No 1{capsu QD Integra Plus - Plus - le} Plus - Potassium Potassium No 1{table QD Potassium Chloride ER Chloride ER t_with_ Chloride 20 MEQ 20 MEQ food} ER 20 MEQ Lasix 20 MG Lasix 20 MG No 1{table QD Lasix 20 t} MG amLODIPine amLODIPine No 1{table QD amLODIPine Besylate 10 Besylate 10 t} Besylate MG MG 10 MG traMADol traMADol No 1{table QID traMADol HCl 50 MG HCl 50 MG t_as_ne HCl 50 MG eded} Metoprolol Metoprolol No 1{table BID Metoprolol Tartrate 50 Tartrate 50 t_with_ Tartrate MG MG food} 50 MG Lisinopril Lisinopril No 1{table QD Lisinopril 20 MG 20 MG t} 20 MG Protonix 40 Protonix 40 No 1{table QD Protonix MG MG t} 40 MG Ferrous Ferrous No 1{table TID Ferrous Sulfate 325 Sulfate 325 t} Sulfate (65 Fe) MG (65 Fe) MG 325 (65 Fe) MG Lasix 20 MG Lasix 20 MG No 1{table QD Lasix 20 t} MG Albuterol Albuterol No 2{puffs QID Albuterol Sulfate 108 Sulfate 108 _as_nee Sulfate (90 Base) (90 Base) ded} 108 (90 MCG/ACT MCG/ACT Base) MCG/ACT Azithromyci Azithromyci No QD Azithromyc n 500 MG n 500 MG in 500 MG Metoprolol Metoprolol No Metoprolol Tartrate 50 Tartrate 50 Tartrate MG MG 50 MG Pantoprazol Pantoprazol No Pantoprazo e Sodium 40 e Sodium 40 le Sodium MG MG 40 MG amLODIPine amLODIPine No 1{table QD amLODIPine Besylate 10 Besylate 10 t} Besylate 10 Integra Integra No 1{capsu QD Integra Plus - Plus - le} Plus - Lisinopril Lisinopril No Lisinopril 20 MG 20 MG 20 MG amLODIPine amLODIPine No amLODIPine Besylate 10 Besylate 10 Besylate MG MG 10 MG Losartan Losartan No 1{table QD Losartan Potassium Potassium t} Potassium 100 100 100 Flonase 50 Flonase 50 No 1{spray QD Flonase 50 MCG/ACT MCG/ACT _in_eac MCG/ACT h_nostr il} FeroSul 325 FeroSul 325 No FeroSul (65 Fe) MG (65 Fe) MG 325 (65 Fe) MG Ferrous Ferrous No 1{table TID Ferrous Sulfate 325 Sulfate 325 t} Sulfate (65 Fe) MG (65 Fe) MG 325 (65 Fe) MG Potassium Potassium No 1{table QD Potassium Chloride ER Chloride ER t_with_ Chloride 20 MEQ 20 MEQ food} ER 20 MEQ Lasix 20 MG Lasix 20 MG No 1{table QD Lasix 20 t} MG amLODIPine amLODIPine No 1{table QD amLODIPine Besylate 10 Besylate 10 t} Besylate MG MG 10 MG traMADol traMADol No 1{table QID traMADol HCl 50 MG HCl 50 MG t_as_ne HCl 50 MG eded} Metoprolol Metoprolol No 1{table BID Metoprolol Tartrate 50 Tartrate 50 t_with_ Tartrate MG MG food} 50 MG Lisinopril Lisinopril No 1{table QD Lisinopril 20 MG 20 MG t} 20 MG Protonix 40 Protonix 40 No 1{table QD Protonix MG MG t} 40 MG Ferrous Ferrous No 1{table TID Ferrous Sulfate 325 Sulfate 325 t} Sulfate (65 Fe) MG (65 Fe) MG 325 (65 Fe) MG Lasix 20 MG Lasix 20 MG No 1{table QD Lasix 20 t} MG Albuterol Albuterol No 2{puffs QID Albuterol Sulfate 108 Sulfate 108 _as_nee Sulfate (90 Base) (90 Base) ded} 108 (90 MCG/ACT MCG/ACT Base) MCG/ACT Azithromyci Azithromyci No QD Azithromyc n 500 MG n 500 MG in 500 MG Metoprolol Metoprolol No Metoprolol Tartrate 50 Tartrate 50 Tartrate MG MG 50 MG Pantoprazol Pantoprazol No Pantoprazo e Sodium 40 e Sodium 40 le Sodium MG MG 40 MG amLODIPine amLODIPine No 1{table QD amLODIPine Besylate 10 Besylate 10 t} Besylate 10 Integra Integra No 1{capsu QD Integra Plus - Plus - le} Plus - Lisinopril Lisinopril No Lisinopril 20 MG 20 MG 20 MG amLODIPine amLODIPine No amLODIPine Besylate 10 Besylate 10 Besylate MG MG 10 MG Losartan Losartan No 1{table QD Losartan Potassium Potassium t} Potassium 100 100 100 Flonase 50 Flonase 50 No 1{spray QD Flonase 50 MCG/ACT MCG/ACT _in_eac MCG/ACT h_nostr il} FeroSul 325 FeroSul 325 No FeroSul (65 Fe) MG (65 Fe) MG 325 (65 Fe) MG Ferrous Ferrous No 1{table TID Ferrous Sulfate 325 Sulfate 325 t} Sulfate (65 Fe) MG (65 Fe) MG 325 (65 Fe) MG Potassium Potassium No 1{table QD Potassium Chloride ER Chloride ER t_with_ Chloride 20 MEQ 20 MEQ food} ER 20 MEQ Lisinopril Lisinopril No 1{table QD Lisinopril 20 MG 20 MG t} 20 MG Protonix 40 Protonix 40 No 1{table QD Protonix MG MG t} 40 MG Flonase 50 Flonase 50 No 2{spray QD Flonase 50 MCG/ACT MCG/ACT _in_eac MCG/ACT h_nostr il} Ferrous Ferrous No 1{table TID Ferrous Sulfate 325 Sulfate 325 t} Sulfate (65 Fe) MG (65 Fe) MG 325 (65 Fe) MG Metoprolol Metoprolol No 1{table BID Metoprolol Tartrate 50 Tartrate 50 t_with_ Tartrate MG MG food} 50 MG amLODIPine amLODIPine No 1{table QD amLODIPine Besylate 10 Besylate 10 t} Besylate MG MG 10 MG Lasix 20 MG Lasix 20 MG No 1{table QD Lasix 20 t} MG Albuterol Albuterol No 2{puffs QID Albuterol Sulfate 108 Sulfate 108 _as_nee Sulfate (90 Base) (90 Base) ded} 108 (90 MCG/ACT MCG/ACT Base) MCG/ACT Furosemide Furosemide No Furosemide 20 MG 20 MG 20 MG amLODIPine amLODIPine No 1{table QD amLODIPine Besylate 10 Besylate 10 t} Besylate MG MG 10 MG Metoprolol Metoprolol No Metoprolol Tartrate 50 Tartrate 50 Tartrate MG MG 50 MG Potassium Potassium No 1{table QD Potassium Chloride ER Chloride ER t_with_ Chloride 20 MEQ 20 MEQ food} ER 20 MEQ Lasix 20 MG Lasix 20 MG No 1{table QD Lasix 20 t} MG Furosemide Furosemide No Furosemide 20 MG 20 MG 20 MG Lisinopril Lisinopril No 1{table QD Lisinopril 20 MG 20 MG t} 20 MG Flonase 50 Flonase 50 No 2{spray QD Flonase 50 MCG/ACT MCG/ACT _in_eac MCG/ACT h_nostr il} Metoprolol Metoprolol No 1{table BID Metoprolol Tartrate 50 Tartrate 50 t_with_ Tartrate MG MG food} 50 MG Albuterol Albuterol No 2{puffs QID Albuterol Sulfate 108 Sulfate 108 _as_nee Sulfate (90 Base) (90 Base) ded} 108 (90 MCG/ACT MCG/ACT Base) MCG/ACT Lisinopril Lisinopril No Lisinopril 20 MG 20 MG 20 MG Ferrous Ferrous No 1{table TID Ferrous Sulfate 325 Sulfate 325 t} Sulfate (65 Fe) MG (65 Fe) MG 325 (65 Fe) MG Potassium Potassium No 1{table QD Potassium Chloride ER Chloride ER t_with_ Chloride 20 MEQ 20 MEQ food} ER 20 MEQ Integra Integra No 1{capsu QD Integra Plus - Plus - le} Plus - Losartan Losartan No 1{table QD Losartan Potassium Potassium t} Potassium 100 100 100 Lisinopril Lisinopril No Lisinopril 20 MG 20 MG 20 MG Protonix 40 Protonix 40 No 1{table QD Protonix MG MG t} 40 MG Ferrous Ferrous No 1{table TID Ferrous Sulfate 325 Sulfate 325 t} Sulfate (65 Fe) MG (65 Fe) MG 325 (65 Fe) MG Azithromyci Azithromyci No QD Azithromyc n 500 MG n 500 MG in 500 MG Lisinopril Lisinopril No 1{table QD Lisinopril 20 MG 20 MG t} 20 MG amLODIPine amLODIPine No 1{table QD amLODIPine Besylate 10 Besylate 10 t} Besylate 10 Pantoprazol Pantoprazol No Pantoprazo e Sodium 40 e Sodium 40 le Sodium MG MG 40 MG Lasix 20 MG Lasix 20 MG No 1{table QD Lasix 20 t} MG Flonase 50 Flonase 50 No 1{spray QD Flonase 50 MCG/ACT MCG/ACT _in_eac MCG/ACT h_nostr il} Albuterol Albuterol No 2{puffs QID Albuterol Sulfate 108 Sulfate 108 _as_nee Sulfate (90 Base) (90 Base) ded} 108 (90 MCG/ACT MCG/ACT Base) MCG/ACT Metoprolol Metoprolol No Metoprolol Tartrate 50 Tartrate 50 Tartrate MG MG 50 MG FeroSul 325 FeroSul 325 No FeroSul (65 Fe) MG (65 Fe) MG 325 (65 Fe) MG traMADol traMADol No 1{table QID traMADol HCl 50 MG HCl 50 MG t_as_ne HCl 50 MG eded} Ferrous Ferrous No 1{table TID Ferrous Sulfate 325 Sulfate 325 t} Sulfate (65 Fe) MG (65 Fe) MG 325 (65 Fe) MG Potassium Potassium 2021- No 1{table QD Potassium Chloride ER Chloride ER 05-21 t_with_ Chloride 20 MEQ 20 MEQ 00:00 food} ER 20 MEQ :00 Potassium Potassium 2022- No 1{table QD Potassium Chloride ER Chloride ER 05- t_with_ Chloride 20 MEQ 20 MEQ 00:00 food} ER 20 MEQ :00 Potassium Potassium 2021- No 1{table QD Potassium Chloride ER Chloride ER 05-21 t_with_ Chloride 20 MEQ 20 MEQ 00:00 food} ER 20 MEQ :00 Immunizations Ordered Immunization Filled Immunization Date Status Commen ts Source Name Name FLUZONE HIGH DOSE FLUZONE HIGH DOSE 2022-04-15 [facility]pleted [facility] OVER [facility] OVER 65 10:55:00 - [facility] FluAD FluAD 2021-04-13 Completed [facility] 12:27:00 - [facility] FluAD FluAD 2021-04-13 Completed [facility] 12:27:00 - [facility] FluAD FluAD 2021-04-13 Completed [facility] 12:27:00 - [facility] FluAD FluAD 2021-04-13 Completed [facility] 12:27:00 - [facility] FluAD FluAD 2021-04-13 [facility]pleted [facility] 12:27:00 - [facility] FluAD FluAD 2021-04-13 Completed [facility] 12:27:00 - [facility] FluAD FluAD 2021-04-13 Completed [facility] 12:27:00 - [facility] FluAD FluAD 2021-04-13 Completed [facility] 12:27:00 - [facility] FluAD FluAD 2021-04-13 Completed [facility] 12:27:00 - [facility] Shingrix Shingrix 2020-07-14 Completed [facility] 11::00 - [facility] Shingrix Shingrix 2020-07-14 Completed [facility] 11::00 - [facility] Shingrix Shingrix 2020-07-14 Completed [facility] 11:: - [facility] Shingrix Shingrix 2020-07-14 Completed [facility] 11:: - [facility] Shingrix Shingrix 2020-07-14 Completed [facility] 11:: - [facility] Shingrix Shingrix 2020-07-14 Completed [facility] 11:01:00 - [facility] Shingrix Shingrix 2020-07-14 Completed [facility] 11:01:00 - [facility] Shingrix Shingrix 2020-07-14 Completed [facility] 11:01:00 - [facility] Shingrix Shingrix 2020-07-14 Completed [facility] 11:01:00 - [facility] Shingrix Shingrix 2020-05-07 Completed [facility] 11:10:00 - [facility] Shingrix Shingrix 2020-05-07 Completed [facility] 11:10:00 - [facility] Shingrix Shingrix 2020-05-07 Completed [facility] 11:10:00 - [facility] Shingrix Shingrix 2020-05-07 Completed [facility] 11:10:00 - [facility] Shingrix Shingrix 2020-05-07 Completed [facility] 11:10:00 - [facility] Shingrix Shingrix 2020-05-07 Completed [facility] 11:10:00 - [facility] Shingrix Shingrix 2020-05-07 Completed [facility] 11:10:00 - [facility] Shingrix Shingrix 2020-05-07 Completed [facility] 11:10:00 - [facility] Shingrix Shingrix 2020-05-07 Completed [facility] 11:10:00 - [facility] FluAD FluAD 2020-04-09 Completed [facility] 13:08:00 - [facility] FluAD FluAD 2020-04-09 Completed [facility] 13:08:00 - [facility] FluAD FluAD 2020-04-09 Completed [facility] 13:08:00 - [facility] FluAD FluAD 2020-04-09 Completed [facility] 13:08:00 - [facility] FluAD FluAD 2020-04-09 Completed [facility] 13:08:00 - [facility] FluAD FluAD 2020-04-09 Completed [facility] 13:08:00 - [facility] FluAD FluAD 2020-04-09 Completed [facility] 13:08:00 - [facility] FluAD FluAD 2020-04-09 Completed [facility] 13:08:00 - [facility] FluAD FluAD 2020-04-09 Completed [facility] 13:08:00 - [facility] FluAD FluAD 2019-04-01 Completed [facility] 11:40:00 - [facility] FluAD FluAD 2019-04-01 Completed [facility] 11:40:00 - [facility] FluAD FluAD 2019-04-01 Completed [facility] 11:40:00 - [facility] FluAD FluAD 2019-04-01 Completed [facility] 11:40:00 - [facility] FluAD FluAD 2019-04-01 Completed [facility] 11:40:00 - [facility] FluAD FluAD 2019-04-01 Completed [facility] 11:40:00 - [facility] FluAD FluAD 2019-04-01 Completed [facility] 11:40:00 - [facility] FluAD FluAD 2019-04-01 Completed [facility] 11:40:00 - [facility] FluAD FluAD 2019-04-01 Completed [facility] 11:40:00 - [facility] FluAD FluAD 2019-04-01 Completed [facility] 00:00:00 - [facility] FluAD FluAD 2018-05-21 Completed [facility] 10:46:00 - [facility] FluAD FluAD 2018-05-21 Completed [facility] 10:46:00 - [facility] FluAD FluAD 2018-05-21 Completed [facility] 10:46:00 - [facility] FluAD FluAD 2018-05-21 Completed [facility] 10:46:00 - [facility] FluAD FluAD 2018-05-21 Completed [facility] 10:46:00 - [facility] FluAD FluAD 2018-05-21 Completed [facility] 10:46:00 - [facility] FluAD FluAD 2018-05-21 Completed [facility] 10:46:00 - [facility] FluAD FluAD 2018-05-21 Completed [facility] 10:46:00 - [facility] FluAD FluAD 2018-05-21 Completed [facility] 10:46:00 - [facility] FluAD FluAD 2018-05-21 Completed [facility] 00:00:00 - [facility] Depo Medrol (40mg) Depo Medrol (40mg) 2018-03-08 Completed [facility] 15:46:00 - [facility] Bupivicaine Swink Bupivicaine Swink 2018-03-08 Completed [facility] 15:42:00 [facility] Vital Signs Vital Name Observation Time Observation Value Comments Source height 2022-04-15 10:00:00 61.5 [in_i] [facility] weight 2022-04-15 10:00:00 172.2 [lb_av] [facility] temperature 2022-04-15 10:00:00 98.2 [degF] [facility] bmi 2022-04-15 10:00:00 32.01 kg/m2 [facility] oximetry 2022-04-15 10:00:00 96 % [facility] respiratory rate 2022-04-15 10:00:00 16 /min [facility] blood pressure 2022-04-15 10:00:00 128 mm[Hg] [facility] - systolic [facility] blood pressure 2022-04-15 10:00:00 64 mm[Hg] [facility] diastolic [facility] height 2022-01-13 08:40:00 61.5 [in_i] [facility] weight 2022-01-13 08:40:00 178 [lb_av] [facility] temperature 2022-01-13 08:40:00 97.6 [degF] [facility] bmi 2022-01-13 08:40:00 33.08 kg/m2 [facility] oximetry 2022-01-13 08:40:00 97 % [facility] respiratory rate 2022-01-13 08:40:00 18 /min [facility] blood pressure 2022-01-13 08:40:00 136 mm[Hg] [facility] - systolic [facility] blood pressure 2022-01-13 08:40:00 74 mm[Hg] [facility] - diastolic [facility] height 2021-10-14 08:20:00 62.50 [in_i] [facility] weight 2021-10-14 08:20:00 186.2 [lb_av] [facility] temperature 2021-10-14 08:20:00 98.0 [degF] [facility] bmi 2021-10-14 08:20:00 33.51 kg/m2 [facility] oximetry 2021-10-14 08:20:00 96 % [facility] respiratory rate 2021-10-14 08:20:00 18 /min [facility] blood pressure 2021-10-14 08:20:00 138 mm[Hg] [facility] - systolic [facility] blood pressure 2021-10-14 08:20:00 72 mm[Hg] [facility] - diastolic [facility] height 2021-06-10 13:00:00 62.50 [in_i] [facility] weight 2021-06-10 13:00:00 190.8 [lb_av] [facility] temperature 2021-06-10 13:00:00 97.5 [degF] [facility] bmi 2021-06-10 13:00:00 34.34 kg/m2 [facility] oximetry 2021-06-10 13:00:00 96 % [facility] respiratory rate 2021-06-10 13:00:00 16 /min [facility] blood pressure 2021-06-10 13:00:00 138 mm[Hg] [facility] - systolic [facility] blood pressure 2021-06-10 13:00:00 68 mm[Hg] [facility] - diastolic [facility] height 2021-04-13 11:20:00 62.50 [in_i] [facility] weight 2021-04-13 11:20:00 189 [lb_av] [facility] temperature 2021-04-13 11:20:00 98.0 [degF] [facility] bmi 2021-04-13 11:20:00 34.01 kg/m2 [facility] oximetry 2021-04-13 11:20:00 95 % [facility] blood pressure 2021-04-13 11:20:00 149 mm[Hg] [facility] - systolic [facility] blood pressure 2021-04-13 11:20:00 70 mm[Hg] [facility] - diastolic [facility] Procedures This patient has no known procedures. Plan of Care Planned Activity Planned Date Details Comments Source Future Scheduled 2022-06-17 COVID-19 VACCINE (#1) [facility] Test 08:53:33 [code = COVID-19 VACCINE (#1)] Future Scheduled 2022-06-17 SHINGLES VACCINES (1 [facility] Test 08:53:33 of 2) [code = SHINGLES VACCINES (1 of 2)] Future Scheduled 2022-06-17 65+ PNEUMOCOCCAL [facility] Test 08:53:33 VACCINE (1 - PCV) [code = 65+ PNEUMOCOCCAL VACCINE (1 - PCV)] Future Scheduled 2022-06-17 INFLUENZA VACCINE [facility] Test 08:53:33 [code = INFLUENZA VACCINE] Encounters Start End Encounter Admission Attending Care Care Encounter Source Date/Time Date/Time Type Type Clinicians Facility Department ID 2021-10-12 Outpatient Angelina Koch [facility] [id number] [facility] 10:05:01 [facility] 2021-09-22 Outpatient Angelina Koch [facility] [id number] [facility] 16:10:00 [facility] 2021-07-28 Outpatient Angelina Koch [facility] [id number] 2 [facility] 14:35:32 [facility] 2021-07-28 Outpatient Koch, Na [facility] [id number] [facility] 14:16:37 [id number] [facility] 2021-07-28 Outpatient Koch, Na [facility] [id number] [facility] 13:58:52 [id number] [facility] 2021-07-28 Outpatient Koch, Na [facility] [id number] 2 [facility] 13:58:29 [id number] [facility] 2021-07-28 Outpatient Koch, Na [facility] [id number] 2 [facility] 12:51:45 [id number] [facility] 2021-07-28 Outpatient Koch, Na [facility] [id number] [facility] 12:02:07 [id number] [facility] 2021-07-28 Outpatient Koch, Na [facility] [id number] 2 [facility] 12:01:44 [id number] [facility] 2021-07-28 Outpatient Koch, Na [facility] [id number] 2 [facility] 11:59:18 [id number] [facility] 2021-07-28 Outpatient Koch, Na [facility] [id number] [facility] 11:59:07 [id number] [facility] 2021-07-28 Outpatient Koch, Na [facility] [id number] [facility] 11:52:35 [id number] [facility] 2021-07-28 Outpatient Koch, Na [facility] [id number] 2 [facility] 11:47:59 [id number] [facility] 2021-07-28 Outpatient Koch, Na [facility] [id number] 2 [facility] 11:44:41 [id number] [facility] 2021-07-28 Outpatient Koch, Na [facility] ST[facility] [id number] 2 [facility] 11:17:44 [id number] [facility] 2021-07-28 Outpatient Koch, Na [facility] [id number] 2 [facility] 11:17:21 [id number] [facility] 2021-07-28 Outpatient Koch, Na [facility] [id number] 2 [facility] 11:13:15 [id number] [facility] 2021-07-28 Outpatient Koch, Na [facility] [id number] 2 [facility] 11:12:06 [id number] [facility] 2022-04-15 2022-04-15 OFFICE [facility] [id number] [facility] 00:00:00 00:00:00 [facility] - [facility] LEVEL 4 [facility] 2022-01-13 2022-01-13 OFFICE STLMLC ST[facility]C [id number] [facility] 00:00:00 00:00:00 VISIT [facility] ESTAB PT - CHI LEVEL 4 [facility] 2021-10-21 2021-10-21 (TEL) STLMLC STLMLC [id number] [facility] 00:00:00 00:00:00 [facility] 2021-10-14 2021-10-14 OFFICE ST[facility]MLC ST[facility]MLC [id number] [facility] 00:00:00 00:00:00 VISIT [facility] ESTAB PT - CHI LEVEL 4 [facility] 2021-07-16 2021-07-16 OL DIG E/M STLMLC STLMLC [id number] Common 00:00:00 00:00:00 C 11-20 Spir it MIN - [facility] 2021-06-10 2021-06-10 (TEL) STLMLC STLMLC [id number] [facility] 00:00:00 00:00:00 [facility] 2021-06-10 2021-06-10 OFFICE [facility]C [facility] [id number] [facility] 00:00:00 00:00:00 VISIT EST Spir it PT LEVEL 3 - [facility] 2021-05-24 2021-05-24 (TEL) STLMLC [facility]C [id number] [facility] 00:00:00 00:00:00 [facility] 2021-04-13 2021-04-13 OFFICE [facility]C ST[facility]C [id number] [facility] 00:00:00 00:00:00 [facility]IT [facility] LEVEL 4 [facility] 2021-01-11 2021-01-11 Outpatient [facility] [id number] [facility] 00:00:00 00:00:00 [facility] 2020-11-05 2020-11-05 Outpatient [facility] [id number] [facility] 00:00:00 00:00:00 [facility] 2020-10-13 2020-10-13 Outpatient [facility] [id number] [facility] 00:00:00 00:00:00 [facility] 2020-10-12 2020-10-12 Outpatient [facility] [id number] [facility] 00:00:00 00:00:00 [facility] 2020-09-04 2020-09-04 Outpatient [facility]C ST[facility] [id number] [facility] 00:00:00 00:00:00 [facility] 2020-08-06 2020-08-06 Outpatient [facility] [id number] [facility] 00:00:00 00:00:00 [facility] 2020-08-05 2020-08-05 Outpatient [facility] ST[facility] [id number] [facility] 00:00:00 00:00:00 [facility] 2020-07-14 2020-07-14 Outpatient [facility] [id number] [facility] 00:00:00 00:00:00 [facility] 2020-05-07 2020-05-07 Outpatient [facility] ST[facility] [id number] [facility] 00:00:00 00:00:00 [facility] 2020-05-07 2020-05-07 Outpatient [facility] [id number] [facility] 00:00:00 00:00:00 [facility] 2020-04-09 2020-04-09 Outpatient [facility]C ST[facility]C [id number] [facility] 00:00:00 00:00:00 [facility] 2019-12-13 2019-12-13 [id number] [facility] 08:20:00 08:20:[address] [facility] Family [facility] Family Medicine [facility] 2019-10-15 2019-10-15 [facility] [id number] [facility] 10:00:00 10:00:[address] [facility] 2019-09-12 2019-09-12 [facility] [id number] [facility] 08:00:00 08:00:[address] [facility] 2019-06-04 2019-06-04 [facility] [id number] [facility] 09:40:00 09:40:[address] [facility] 2019-04-01 2019-04-01 [facility] [id number] Common 10:00:00 10:00:[address] [facility] 2019-03-27 2019-03-27 [facility] [id number] Common 10:43:00 10:43:[address] [facility] 2019-02-26 2019-02-26 [facility] [id number] Common 10:00:00 10:00:[address] [facility] 2018-10-15 2018-10-15 [facility] [id number] Common 08:55:00 08:55:[address] [facility] 2018-10-10 2018-10-10 [facility] [id number] Common 15:58:00 15:58:[address] [facility] 2018-10-03 2018-10-03 [facility] [id number] Common 12:20:00 12:20:[address] [facility] 2018-09-21 2018-09-21 [facility] [id number] Common 10:30:00 10:30:[address] [facility] 2018-09-20 2018-09-20 [facility] [id number] Common 08:39:00 08:39:[address] [facility] 2018-08-22 2018-08-22 [facility] [id number] [facility] 11:22:00 11:22:[address] [facility] 2018-08-22 2018-08-22 [facility] [id number] Common 09:30:00 09:30:[address] [facility] 2018-05-21 2018-05-21 [facility] [id number] [facility] 09:00:00 09:00:[address] [facility] 2018-03-08 2018-03-08 [facility] [id number] [facility] 14:30:00 14:30:00 [facility] Results Test Description Test Time Test Comments Results Result Comments Source HEMOGLOBIN A1C 2022-01-13 00:00:00 Test Item Value Reference Range Interpretation Comme nts A1C (test code = 4548-4) 5.7% Hemoglobin [id number] 00:00:00 Test Item Value Reference Range Interpretation Comments Hemoglobin A1c (test code = 4548-4) 5.7 Hemoglobin [id number] 00:00:00 Test Item Value Reference Range Interpretation Comments Hemoglobin A1c (test 5.5 % See_Comment [Autom ated message] The code = 4548-4) system which generated this result tra nsmitted reference range : 4.2-6.3 %. The referenc e range was not used to interpret this result as normal/abnormal .
[2022-06-20] MEDS ORDERED: NA CHLORIDE 0.9% 250 ML ONE (20:01)
[2022-06-20 20:25] LABS: Absolute Lymphocytes (CBC) 1.6 K/uL (0.7-4.9); Hematocrit 41.9 % (36.0-45.0); Lymphocytes % 19.8 % (15.3-44.8); MCV 90.2 fL (80-100); MPV 8.1 fL (7.6-11.3); RBC Red Blood Cell Count 4.64 M/uL (3.86-4.86)
[2022-06-20 20:40] LABS: Protime INR 1.07
[2022-06-20 20:54] LABS: Potassium 3.1 mmol/L (3.5-5.1)
[2022-06-20 21:02] LABS: SARS-COV-2 RT PCR NEGATIVE (NEGATIVE)
--- NOTE | 2022-06-20 21:21 | RAD REPORT ---
EXAM DESCRIPTION: CT - Head C Spine Mpr Wo Con - 06/20/2022 8:54 pm CLINICAL HISTORY: Head and neck injury status post fall. Head and neck pain COMPARISON: December 2021 TECHNIQUE: Computed axial tomography of the head and cervical spine was obtained. Sagittal and coronal reconstruction was performed. All CT scans are performed using dose optimization technique as appropriate and may include automated exposure control or mA/KV adjustment according to patient size. FINDINGS: An intracranial bleed is not seen. The ventricles are normal in caliber. An extra-axial fl uid collection is not noted.Fluid within the visualized sinuses and mastoids is not seen A cervical fracture is not visualized. No dislocation is noted. Mild anterior subluxation C3 on C4 and C4 on C5 unchanged from the prior exam. Spondylosis cervical s pine 24 millimeter right thyroid nodule IMPRESSION: No acute intracranial abnormality is seen. A cervical fracture is not visualized. If the patient continues to have symptoms to suggest intracra nial /spinal cord pathology then MRI would be recommended
[2022-06-20 23:18] LABS: Urine Blood Negative (Negative); Urine Glucose Negative (Negative); Urine Protein Negative (Negative)
--- NOTE | 2022-06-20 23:32 | ER ---
Nurse's Notes [facility] Name: Jazzy Maria Age: 87 yrs Sex: Female : 1935 Arrival Date: 06/20/2022 Time: 19:33 Bed 7 Private MD: Diagnosis: Unspecified injury of head, initial encounter;Concussion without loss of consciousness Presentation: 06/20 19:38 Chief complaint: reports intermittent confusion after mechanical fall one week hb ago. Pt reports headache and dizziness today that resolved after Tylenol and Benadryl. Coronavirus screen: At this time, the client does not indicate any symptoms associated with coronavirus-19. Ebola Screen: No symptoms or risks identified at this time. Initial Sepsis Screen: Does the patient meet any 2 criteria? No. Patient's initial sepsis screen is negative. Does the patient have a suspected source of infection? No. Patient's initial sepsis screen is negative. Risk Assessment: Do you want to hurt yourself or someone else? Patient reports no desire to harm self or others. Onset of symptoms was June 20, 2022. 19:38 Method Of Arrival: Wheelchair hb 19:38 Acuity: CYRUS 3 hb Historical: - Allergies: 19:41 Codeine; hb - PMHx: 19:41 Anemia; CHF; Hypertension; Osteoporosis; Pre Diabetes; hb - Immunization history:: Adult Immunizations up to date. - Family history:: not pertinent. - Social history:: Smoking status: unknown. - Hospitalizations: : No recent hospitalization is reported. Screenin:15 [facility] ED Fall Risk Assessment (Adult) History of falling in the last 3 months, jb4 including since admission Yes- single mechanical fall (1 pt) Confusion or Disorientation No (0 pts) Intoxicated or Sedated No (0 pts) Impaired Gait Yes (1 pt) Mobility Assist Device Used Yes (1 pt) Altered Elimination No (0 pt) Score/Fall Risk Level 3 or more points = High Risk Oriented to surroundings, Maintained a safe environment. Abuse screen: Denies threats or abuse. Nutritional screening: No deficits noted. Tuberculosis screening: No symptoms or risk factors identified. Fall Risk Fall in past 12 months (25 points). No secondary diagnosis (0 pts). No IV (0 pts). Ambulatory Aid- Crutches/Cane/Walker (15 pts). Gait- Normal/Bed Rest/Wheelchair (0 pts) Mental Status- Oriented to own ability (0 pts). Total Stevens Fall Scale indicates No Risk (0-24 pts). 23:37 Humpty Dumpty Scale Fall Assessment Tool (age< 18yrs) Age 13 years and above (1 pt) aa9 Gender Female (1 pt) Diagnosis Other diagnosis (1 pt) Cognitive Impairments Forgets limitations (2 pts) Environmental Factors Patient placed in bed (2 pts) Response to Surgery/Sedation/Anesthesia More than 48 hours/ None (1 pt) Medication Usage Other medications/ None (1 pt) Fall Risk Score/ Level High Fall Risk: >/= 12 points Oriented to surroundings, Maintained a safe environment: age specific bed with railing, Bed in low position \T\ wheels locked, Assessed need for side rail use, Locks on all chairs, commodes, stretchers \T\ wheelchairs, Rm and paths clutter \T\ obstacle free, Proper lighting. Assessment: 20:14 General: Appears in no apparent distress. comfortable, Behavior is calm, cooperative. jb4 Pain: Denies pain. Neuro: Level of Consciousness is awake, alert, obeys commands, Oriented to person, place, time, situation. Cardiovascular: Heart tones S1 S2 present Patient's skin is warm and dry. Respiratory: Airway is patent Respiratory effort is even, unlabored, Respiratory pattern is regular, symmetrical, Breath sounds are clear bilaterally. GI: No signs and/or symptoms were reported involving the gastrointestinal system. : No signs and/or symptoms were reported regarding the genitourinary system. EENT: No signs and/or symptoms were reported regarding the EENT system. Derm: Skin is intact, Skin is pink, warm \T\ dry. Musculoskeletal: Circulation, motion, and sensation intact. 21:30 Reassessment: Patient appears in no apparent distress at this time. Patient and/or jb4 family updated on plan of care and expected duration. Pain level reassessed. Patient is alert, oriented x 3, equal unlabored respirations, skin warm/dry/pink. 22:30 Reassessment: Patient appears in no apparent distress at this time. Patient and/or jb4 family updated on plan of care and expected duration. Pain level reassessed. Patient is alert, oriented x 3, equal unlabored respirations, skin warm/dry/pink. Vital Signs: 19:38 BP 153 / 69; Pulse 79; Resp 16; Temp 100.8(O); Pulse Ox 98% on R/A; Weight 83.91 kg; hb Height 5 ft. 3 in. (160.02 cm); Pain 0/10; 21:30 BP 168 / 79; Pulse 78; Resp 18; Pulse Ox 98% on R/A; jb4 22:30 BP 107 / 77; Pulse 77; Resp 16; Temp 98.5(O); Pulse Ox 100% on R/A; jb4 19:38 Body Mass Index 32.77 (83.91 kg, 160.02 cm) hb ED Course: 19:33 Patient arrived in ED. as 19:40 Jonny Houston MD is Attending Physician. rn 19:41 Triage completed. hb 19:41 Arm band placed on. hb 20:14 Sawyer Carvalho, RN is Primary Nurse. jb4 20:20 COVID-19/FLU A+B Sent. as7 20:20 Protime (+inr) Sent. as7 20:20 Ptt, Activated Sent. as7 20:20 CBC with Diff Sent. as7 20:20 Initial lab(s) drawn, by me, sent to lab. Missed attempt(s): 20 gauge in right as7 antecubital area. Bleeding controlled, band aid applied, catheter tip intact. 20:33 Inserted saline lock: 20 gauge in right wrist, using aseptic technique. jb4 20:55 CT Head C Spine In Process Unspecified. EDMS 22:00 Inserted saline lock: 22 gauge in left antecubital area, using aseptic technique. jb4 23:37 Patient has correct armband on for positive identification. Placed in gown. Bed in low aa9 position. Call light in reach. Side rails up X2. Adult w/ patient. 23:37 No provider procedures requiring assistance completed. aa9 23:38 IV discontinued, intact, bleeding controlled, No redness/swelling at site. Pressure aa9 dressing applied. Administered Medications: 19:57 Not Given (Duplicate Order): NS 0.9% 500 ml IV at bolus once rn 20:34 Drug: NS 0.9% 250 ml Route: IV; Rate: calculated rate; Site: right wrist; jb4 Medication: 23:38 VIS not applicable for this client. aa9 Outcome: 23:32 Discharge ordered by . rn 23:37 Condition: stable aa9 23:38 Discharge instructions given to patient, family, Instructed on discharge instructions, aa9 follow up and referral plans. Demonstrated understanding of instructions, follow-up care. 23:51 Patient left the ED. aa9 Signatures: Dispatcher [employer] Tameka Newsome Roman, MD MD rn Baxter, Heather, RN RN Sawyer Carvalho RN RN jb Dayna Valentin RN RN aa9 Janette Manjarrez as7 Corrections: (The following items were deleted from the chart) 20:21 19:38 Chief complaint: reports intermittent confusion after fall one week ago. hb Pt reports headache and dizziness today that resolved after Tylenol 20:32 20:14 Neuro: Level of Consciousness is awake, alert, obeys commands, Oriented to jb4 jb4 22:43 22:30 BP 107 / 77; Pulse 77bpm; Resp 16bpm; Pulse Ox 100% RA; jb4 jb4
--- NOTE | 2022-06-20 23:32 | EDPHYS ---
Physician Documentation [facility] Name: Jazzy Maria Age: 87 yrs Sex: Female : 1935 Arrival Date: 06/20/2022 Time: 19:33 Bed 7 Private MD: ED Physician Jonny Houston HPI: 06/20 19:55 This 87 yrs old Female presents to ER via Wheelchair with complaints of Altered Mental rn Status. 19:55 This 87 yrs old Female presents to ER via Wheelchair with complaints of Altered Mental rn Status. 19:55 The patient presents with trouble concentrating. Onset: The symptoms/episode rn began/occurred 5 day(s) ago. Possible causes: head injury, a fall, slipped. Associated signs and symptoms: Pertinent positives: headache, Pertinent negatives: abdominal pain, chest pain, seizure, shortness of breath, vertigo, vomiting, weakness. Current symptoms: In the emergency department the patient's symptoms have improved. The patient has not experienced similar symptoms in the past. The patient has not recently seen a physician. reports patient fell 5-6 days ago, slipped on magazine on floor, hit right face on floor, no LOC, does not take blood thinners. Reports since then feeling generalized weakness, fatigue, trouble concentrating, and "not making much sense" at times. No vomiting/diarrhea. . Historical: - Allergies: 19:41 Codeine; hb - PMHx: 19:41 Anemia; CHF; Hypertension; Osteoporosis; Pre Diabetes; hb - Immunization history:: Adult Immunizations up to date. - Family history:: not pertinent. - Social history:: Smoking status: unknown. - Hospitalizations: : No recent hospitalization is reported. ROS: 19:55 Constitutional: Negative for fever, chills, and weight loss, Eyes: Negative for injury, rn pain, redness, and discharge, ENT: Negative for injury, pain, and discharge, Neck: Negative for injury, pain, and swelling, Cardiovascular: Negative for chest pain, palpitations, and edema, Respiratory: Negative for shortness of breath, cough, wheezing, and pleuritic chest pain, Abdomen/GI: Negative for abdominal pain, nausea, vomiting, diarrhea, and constipation, Back: Negative for injury and pain, : Negative for injury, bleeding, discharge, and swelling, MS/Extremity: Negative for injury and deformity, Skin: Negative for injury, rash, and discoloration, Neuro: Negative for numbness, tingling, and seizure. Exam: 19:55 Constitutional: This is a well developed, well nourished patient who is awake, alert, rn and in no acute distress. Head/Face: Healing ecchymosis right quaker and right cheek, no lacerations. Vital Signs: 19:38 BP 153 / 69; Pulse 79; Resp 16; Temp 100.8(O); Pulse Ox 98% on R/A; Weight 83.91 kg; hb Height 5 ft. 3 in. (160.02 cm); Pain 0/10; 21:30 BP 168 / 79; Pulse 78; Resp 18; Pulse Ox 98% on R/A; jb4 22:30 BP 107 / 77; Pulse 77; Resp 16; Temp 98.5(O); Pulse Ox 100% on R/A; jb4 19:38 Body Mass Index 32.77 (83.91 kg, 160.02 cm) hb MDM: 19:40 Patient medically screened. rn 23:31 Differential Diagnosis: electrolyte abnormality, UTI, volume depletion, concussion, rn head injury. Data reviewed: vital signs, nurses notes, lab test result(s), radiologic studies, CT scan, and as a result, I will discharge patient. Counseling: I had a detailed discussion with the patient and/or guardian regarding: the historical points, exam findings, and any diagnostic results supporting the discharge/admit diagnosis, lab results, radiology results, the need for outpatient follow up, to return to the emergency department if symptoms worsen or persist or if there are any questions or concerns that arise at home. Response to treatment: the patient's symptoms have markedly improved after treatment, and as a result, I will discharge patient. 06/20 19:52 Order name: CBC with Diff; Complete Time: 20:52 rn 06/20 19:52 Order name: Protime (+inr); Complete Time: 20:52 rn 06/20 19:52 Order name: Ptt, Activated; Complete Time: 20:52 rn 06/20 19:52 Order name: Urine Microscopic Only rn 06/20 19:52 Order name: COVID-19/FLU A+B; Complete Time: 21:22 rn 06/20 19:53 Order name: BMP; Complete Time: 21:22 rn 06/20 19:52 Order name: CT Head C Spine; Complete Time: 21:22 rn 06/20 19:52 Order name: IV Start; Complete Time: 23:28 rn 06/20 19:52 Order name: Urine Dipstick-Ancillary (obtain specimen); Complete Time: 23:21 rn 06/20 23:18 Order name: Urine Dipstick-Ancillary; Complete Time: 23:31 EDMS Administered Medications: 19:57 Not Given (Duplicate Order): NS 0.9% 500 ml IV at bolus once rn 20:34 Drug: NS 0.9% 250 ml Route: IV; Rate: calculated rate; Site: right wrist; jb4 Disposition Summary: 06/20/22 23:32 Discharge Ordered Location: Home rn Problem: new rn Symptoms: have improved rn Condition: Stable rn Diagnosis - Unspecified injury of head, initial encounter rn - Concussion without loss of consciousness rn Followup: rn - With: Private Physician - When: As needed - Reason: Recheck today's complaints, Re-evaluation by your physician Discharge Instructions: - Discharge Summary Sheet rn - Concussion, Adult rn - Head Injury, Adult rn - Fall Prevention in the Home, Adult rn Forms: - Medication Reconciliation Form rn - Thank You Letter rn - Antibiotic rn angiography - Prescription Opioid Use rn Signatures: Dispatcher [employer] Jonny Drummond MD MD rn Baxter, Heather, RN Sawyer Celaya RN RN jb4 Dayna Valentin, RN RN aa9
[2022-06-20 23:52] LABS: Urine Bacteria None Seen /HPF (<20); Urine Mucus Slight /HPF (None Seen); Urine RBC None Seen /HPF (None Seen)
[2022-06-20 23:59] VITALS: BP 107/77; TEMP 98.5; O2SAT 100
== END 2022-06-20 23:51 | disposition home or self-care (01) ==
LOC: ER 19:10
DX: S06.0X0A Concussion without loss of consciousness, initial encounter (principal); I10 Essential (primary) hypertension; Z20.822 Contact with and (suspected) exposure to COVID-19; Z88.5 Allergy status to narcotic agent
CPT/HCPCS: 85025; 80048; 36415; 85610; 85730; 0240U; 70450; 72125; J7050; 81003; 81015; 96374; 99284

== ENCOUNTER → 2023-03-13 | Day surgery (SDC) | payer OTHER ==
[2012-02-10 20:59] VITALS: BP 166/67
--- NOTE | 2023-03-13 11:56 | RAD REPORT ---
EXAM DESCRIPTION: US - Breast Core BX w/US Guidance - 03/13/2023 10:29 am CLINICAL HISTORY: Left breast mass COMPARISON: 02/22/2023 TECHNIQUE: The risks, benefits alternatives to the procedure were explained to the patient and infor med consent obtained. Skin and subcutaneous tissues anesthetized with lidocaine. Under sonographic guidance, 3 x 14 gauge vacuum assisted core biopsies of the mass within the left br east obtained at 4 o'clock. 2 centimeter specimens taken. Tissue given to pathology. Patient experienced no immediate complication IMPRESSION: Vacuum assisted core biopsies of the left breast mass at 4 o'clock
--- NOTE | 2023-03-13 11:57 | RAD REPORT ---
EXAM DESCRIPTION: Ultrasound-guided vacuum assisted breast core biopsy CLINICAL HISTORY: 2 MASSES COMPARISON: 02/22/2023 FINDINGS: Informed consent was obtained and time-out was performed. The patient's left breast was prepped and draped in the usual sterile fashion. 1% lidocaine was used for local anesthetic purposes. Utilizing aseptic technique and ultrasound guidance, a 12 gauge vacuum assisted core biopsy device wa s used to obtain 3 core specimens through the mass of interest. Note that this was the lesion at 6 o' clock in the left breast. All collected material was sent for cytology. Patient tolerated procedure well. IMPRESSION: Successful ultrasound guided vacuum assisted left breast mass biopsy.
== END ==
LOC: DS 08:58
PROVIDERS: ATTEND Surgery
DX: C50.912 Malignant neoplasm of unspecified site of left female breast (principal); Z17.0 Estrogen receptor positive status [ER+]
CPT/HCPCS: 19083; 19084; 88305